=== PATIENT | male | born 1970 | race Caucasian/White ===

== ENCOUNTER 2017-04-27 07:23 | Inpatient (IN) | payer BC ==
[~2017-04-27] VITALS: Ht 195.6 cm; Wt 103.9 kg
[2017-04-27] VITALS (16 sets, daily range): BP systolic 111–152; BP diastolic 60–112
[2017-04-27] MEDS ORDERED: PLAVIX 75 MG TA75 M1 PO (07:29)
[2017-04-27] MEDS ORDERED: LISINOPRIL20 MG PO (07:29)
[2017-04-27] MEDS ORDERED: VITORIN (07:29)
[2017-04-27] MEDS ORDERED: ANDROGEL75 GM TOP (07:32)
[2017-04-27] MEDS ORDERED: TESTOPEL75 MG IL (07:34)
[2017-04-27 07:57] LABS: ABSOLUTE EOSINOPHILS 0.1 thou/uL (0.0-0.7); ABSOLUTE LYMPHOCYTES 1.5 thou/uL (0.8-5.3); ABSOLUTE MONOCYTES 0.6 thou/uL (0.0-1.2); ABSOLUTE NEUTROPHILS 7.1 thou/uL (1.6-8.1); BASOPHILS 0.5 %; EOSINOPHILS 1.3 %; HEMATOCRIT 58.4 % (42.0-52.0); HEMOGLOBIN 19.9 gm/dL (14.0-18.0); LYMPHOCYTES 15.6 %; MCH 32.6 pg (26.0-34.0); MCHC 34.2 g/dL (28.0-37.0); MCV 95.6 fL (80.0-100.0); MONOCYTES 6.6 %; MPV 7.1 fl. (7.2-11.1); NUCLEATED RBCS 0 /100WBC; PLATELET COUNT* 216 thou/uL (150-400); RBC 6.11 mil/uL (4.50-6.00); RDW-CV 13.7 % (10.5-14.5); WBC 9.4 thou/uL (4.0-11.0)
[2017-04-27 08:02] LABS: ANION GAP 7 mmol/L (7-16); BUN 10 mg/dL (7-18); CALCIUM 8.9 mg/dL (8.5-10.1); CHLORIDE 102 mmol/L (98-107); CO2 27 mmol/L (21-32); CREATININE 1.1 mg/dL (0.6-1.3); GLUCOSE 116 mg/dL (70-99); POTASSIUM 4.2 mmol/L (3.5-5.1); SODIUM 136 mmol/L (136-145)
[2017-04-27 08:13] LABS: ALBUMIN 3.8 g/dL (3.4-5.0); ALKALINE PHOSPHATASE 56 U/L (46-116); APTT 30.3 Seconds (25.0-31.3); INR 1.1; NT-PRO BRAIN NAT PEPTIDE 11 pg/mL (<300); PROTIME 10.7 Seconds (9.20-11.50); SGOT 18 U/L (15-37); SGPT 27 U/L (30-65); TOTAL BILIRUBIN 0.8 mg/dL (<0.1-1.0); TOTAL PROTEIN 6.8 g/dL (6.4-8.2); TROPONIN-I LEVEL <0.06 ng/mL (<0.06)
[2017-04-27 13:04] LABS: CHOLESTEROL 258 mg/dL (<200); HDL CHOLESTEROL 39 mg/dL (>40); LDL CHOLESTEROL 182 mg/dL (<100); SERUM ASSESSMENT Clear; TC:HDL 6.6 Ratio (Not establshd); TRIGLYCERIDE 188 mg/dL (<150); VLDL 38 mg/dL (<40)
--- NOTE | 2017-04-27 17:44 | EKG ---
[place] [address] ELECTROCARDIOGRAM REPORT Name: MADISON ESPINOZA JR Room: [address] ADM IN M.R.#: [id number] Admission: 04/27/17 Attend Phys: Naseem [place] Discharge: Date of : 66 Report #: [id number] THIS REPORT FOR: //name// [facility] ED Test Date: 2017-04-27 Test Time: 07:53:59 Pat Name: MADISON ESPINOZA Department: Room: [facility] Gender: M Test Case Developer: Steven KRISHNA : 1970 Requested By: Nicole Stiles Order Number: [id number] MD: Hair Rock Measurements Intervals [place] Rate: 82 P: 2 [place]: 145 QRS: -60 QRSD: 99 T: 29 QT: 362 QTc: 423 Interpretive Statements Sinus rhythm Abnormal inferior Q waves ST elev, probable normal early repol pattern No previous ECG available for comparison Electronically Signed On 04-27-2017 17:44:36 SLUBBER TENDER by Hair Rock [email or web address] <ELECTRONICALLY SIGNED> By: Hair Rock MD, [facility] 04/27/17 1744 0753 0753 Hair Rock MD, FAC /EPI
--- NOTE | 2017-04-27 17:44 | EKG ---
[place] [address] ELECTROCARDIOGRAM REPORT Name: MADISON ESPINOZA JR Room: [address] ADM IN M.R.#: [id number] Admission: 04/27/17 Attend Phys: Naseem [place] Discharge: Date of : 66 Report #: [id number] THIS REPORT FOR: //name// [facility] ED Test Date: 2017-04-27 Test Time: 07:28:57 Pat Name: MADISON ESPINOZA Department: Room: [facility] Gender: M As400 Analyst: [place] : 1970 Requested By: Nicole Stiles Order Number: [id number] MD: Hair Rock Measurements Intervals [place] Rate: 84 P: -23 [place]: 147 QRS: -61 QRSD: 101 T: 29 QT: 357 QTc: 422 Interpretive Statements Sinus rhythm Left axis deviation Abnormal inferior Q waves ST elev, probable normal early repol pattern No previous ECG available for comparison Electronically Signed On 04-27-2017 17:44:29 PAINTER HAND by Hair Rock [email or web address] <ELECTRONICALLY SIGNED> By: Hair Rock MD, [facility] 04/27/17 1744 7 7 Hair Rock MD, [facility] /EPI
--- NOTE | 2017-04-27 19:38 | NUR ---
ADMISSION ASSESSMENT AND HISTORY COMPLETED REFER TO COMPUTER CHARTING. CAPITAL CAMPAIGN FUNDRAISER TRACKING SR. PATIENT RESTING IN BED REPORTING NO PAIN, NAUSEA OR SHORTNESS OF BREATH. BED IN LOW AND LOCKED POSITION. CALL LIGHT WITHIN REACH. IV FLUIDS INFUSING. PATIENT HAD CARDIAC CATH TO RIGHT GROIN THIS AFTERNOON, DRESSING CLEAN, DRY AND INTACT.
[2017-04-28] VITALS (7 sets, daily range): BP systolic 115–144; BP diastolic 59–91
[2017-04-28 05:31] LABS: HEMATOCRIT 48.3 % (42.0-52.0); MCH 33.1 pg (26.0-34.0); MCHC 34.2 g/dL (28.0-37.0); MCV 96.7 fL (80.0-100.0); RBC 4.99 mil/uL (4.50-6.00); RDW-CV 13.6 % (10.5-14.5); WBC 6.8 thou/uL (4.0-11.0)
[2017-04-28 05:32] LABS: HEMOGLOBIN 16.5 gm/dL (14.0-18.0)
[2017-04-28 05:58] LABS: CALCIUM 8.4 mg/dL (8.5-10.1); CREATININE 0.9 mg/dL (0.6-1.3); POTASSIUM 4.4 mmol/L (3.5-5.1); TROPONIN-I LEVEL 0.35 ng/mL (<0.06)
--- NOTE | 2017-04-28 06:33 | NUR ---
Pt pleasant and cooperative, though makes vulgar comments at times. Made several references to wanting bourbon and a cigarette, but deliveryy seems to be in jest. Bing finley, VSS. Will continue to monitor.
--- NOTE | 2017-04-28 13:10 | NUR ---
CM ASSESSMENT: Pt is A&O. Resides at home with his and children. Independent with ADLs, continues to work. Significant ETOH use, states that he has cut back. No DME. No hx of HH or SNF. Planned cardiac cath today. Goal is to return home once medically stable. Following.
--- NOTE | 2017-04-28 13:38 | NUR ---
ASSUMED RESPONSIBILITY OF PT THIS AM PT IS ALERT AND ORIENTED UP AD KOLBY PLAN TO DC TODAY SOME DISCOMFORT IN GROIN SITE BUT PT KNEW IT WAS FROM 'OVER DOING IT' LAST NIGHT PT WITH APPETITE, VERY HUNGRY AT BEDSIDE CALL LIGHT IN REACH NO COMPLAINTS AT THIS TIME JUST 'READY TO LEAVE'
[2017-04-28] MEDS ORDERED: ASPIR 8181 MG PO (13:48)
[2017-04-28] MEDS ORDERED: NITROGLYCERIN0.4 MG SUBLING (13:49)
[2017-04-28] MEDS ORDERED: IMDUR 30 MG TAB30 M1 PO (13:50)
[2017-04-28] MEDS ORDERED: LIPITOR40 MG PO (13:50)
--- NOTE | 2017-04-28 15:49 | NUR ---
PT DISCHARGED HOME WITH WITHOUT CONCERNS TOLD THIS NURSE HE WAS NOT TAKING ANY OF THE NEW MEDICATIONS RECOMMENDED EXPLAINED IMPORTANCE BUT PT DID NOT CARE
--- NOTE | 2017-04-28 17:34 | EKG ---
[place] [address] ELECTROCARDIOGRAM REPORT Name: MADISON ESPINOZA JR Room: [address] DIS IN M.R.#: [id number] Admission: 04/27/17 Attend Phys: Naseem [place] Discharge: 04/28/17 Date of : 66 Report #: [id number] THIS REPORT FOR: //name// [facility] Test Date: 2017-04-27 Test Time: 18:05:11 Pat Name: MADISON ESPINOZA Department: Room: [address] Gender: M Volunteer Manager: [place] : 1970 Requested By: Domenic Tejeda Order Number: [id number] Octavia MD: Hair Rock Measurements Intervals [place] Rate: 64 P: -24 [place]: 154 QRS: -33 QRSD: 104 T: 1 QT: 402 QTc: 415 Interpretive Statements Sinus rhythm Left axis deviation Abnormal inferior Q waves ST elev, probable normal early repol pattern Baseline wander in lead(s) V5 Compared to ECG 04/27/2017 07:53:59 Left-axis deviation now present ST (T wave) deviation still present Electronically Signed On 04-28-2017 17:34:03 PROCESS EXPERT by Hair Rock [email or web address] <ELECTRONICALLY SIGNED> By: Hair Rock MD, FACC 04/28/17 1734 1805 1805 Hair Rock MD, FACC /EPI
--- NOTE | 2017-04-28 17:40 | EKG ---
[place] [address] ELECTROCARDIOGRAM REPORT Name: MADISON ESPINOZA JR Room: [address] DIS IN M.R.#: [id number] Admission: 04/27/17 Attend Phys: Naseem [place] Discharge: 04/28/17 Date of : 66 Report #: [id number] THIS REPORT FOR: //name// [facility] Test Date: 2017-04-28 Test Time: 09:10:03 Pat Name: MADISON ESPINOZA Department: Room: [address] Gender: M Cartography Teacher: : 1970 Requested By: Domenic Tejeda Order Number: [id number] Octavia MD: Hair Rock Measurements Intervals [place] Rate: 66 P: -14 [place]: 151 QRS: 3 QRSD: 105 T: 24 QT: 390 QTc: 415 Interpretive Statements Sinus rhythm ST elev, probable normal early repol pattern Baseline wander in lead(s) I,aVR,aVL,V1,V4 Compared to ECG 04/27/2017 07:53:59 Inferior Q waves no longer present Q waves no longer present ST (T wave) deviation still present Electronically Signed On 04-28-2017 17:40:38 GLASS ENGRAVER by Hair Rock [email or web address] <ELECTRONICALLY SIGNED> By: Hair Rock MD, FACC 04/28/17 1740 0910 0910 Hair Rock MD, FACC /EPI
--- NOTE | 2017-04-30 10:36 | CARD ---
[address] [address] CARDIAC CATH REPORT Name: MADISON ESPINOZA JR Room: [address]#: [id number] Admission: 04/27/17 Attend Phys: Naseem [place] Discharge: 04/28/17 Date of : 66 Report #: [id number] THIS REPORT FOR: //name// APPROVED REPORT Patient Details Patient Status: In-Patient Room #: The patient is a 46 year-old male Event Personnel Domenic Tejeda Behavioral Health Consultant, Laina Alvarado RN RN, Mariela Lugo RTR Scrub, Todd Mcclelland (R) Monitor, Madison Amaya Monitor Procedures Performed Left heart catheterization left ventriculography selective coronary angiography, and percutaneous coronary intervention with deployment of a drug-eluting stent at the site of 90% proximal circumflex stenosis with local thrombus at the site Indication Unstable angina Risk Factors Hypercholesterolemia, Hypertension, Tobacco History () Previous Procedures/Diagnoses Previous PCI, Previous IA Admission/Lab Medications/Medications given during procedure Aspirin, Platelet Aff. Inhib., Angiomax bolus and infusion Procedure Narrative The patient was brought electively to the Cardiac Catheterization Laboratory and was prepped and draped in a sterile manner. The right femoral was infiltrated with 1% Lidocaine subcutaneous anesthesia. A [place] 6 FR sheath was inserted into the right femoral artery. Coronary angiography was performed using coronary diagnostic catheters. The right coronary system was accessed and visualized with a Diagnostic - JR4 catheter. The left coronary system was accessed and visualized with a Diagnostic - JL4 catheter. The left ventricle was accessed and visualized with a Diagnostic - PIGTAIL catheter. Left ventricular/Aortic Valve gradient assessed via catheter pullback. Pre-demployment femoral angiogram was performed . Closure device was deployed with a Fr Angioseal. [place] [address] CARDIAC CATH REPORT Name: MADISON ESPINOZA JR Room: [address]#: [id number] Admission: 04/27/17 Attend Phys: Naseem [place] Discharge: 04/28/17 Date of : 66 Report #: [id number] procedure well and there were no complications associated with the procedure. There was no hematoma. Intraoperative Conscious Sedation Sedation start time: 1539 Case end Time: 1632 Fentanyl 100 mcg Versed 4 mg Fluoro Time: 14.2 minutes Dose: DAP 390709 cGycm2 1929 mGy Contrast Type and Amount: Visipaque 260 ml Coronary Angiography The patient's coronary anatomy is right dominant. Diagnostic Cath Left Main 0% narrowing LAD 40% proximal and 90% mid LAD stenosis Circumflex 95% ostial circumflex narrowing with local thrombus at the site Right Coronary The proximal mid and distal right coronary narrowing with 50% narrowing of the posterior descending branch in its midportion Left Ventriculography The left ventricle is normal in size with contractility. The left ventricular ejection fraction is estimated to be 50%. There is no mitral insufficiency. Hemodynamics The aortic pressure is 95/67 mmHg with a mean of 79 mmHg. The left ventricular pressure is 87/6 mmHg with a mean of mmHg. The left ventricular end diastolic pressure is 9 mmHg. There was no gradient across the aortic valve upon pullback. PCI Technique Lesion Anticoagulation was achieved with Angiomax. Patient was preloaded with Angiomax IV 16 mg per kg. Percutaneous coronary intervention was performed on the proximal circumflex artery segment. The lesion stenosis prior to intervention was 95% with RICK 3 flow. A 6F XB LAD 3.5 Guide Catheter was used to engage the ostium. A IG: ProwaterFlex 180CM Interventional Guidewire was used to cross the lesion. BALLOON DILATION A Balloon catheter Trek RX 2.5 X 12 was inserted and inflated up to 10.00atm for 14seconds. Additional Inflation: 16.00atm [place] 13seconds. [place] [address] CARDIAC CATH REPORT Name: MADISON ESPINOZA JR Room: [address]#: [id number] Admission: 04/27/17 Attend Phys: Naseem [place] Discharge: 04/28/17 Date of : 66 Report #: [id number] Additional Inflation: 14.00atm for 11seconds. 16 MENG FOR 13 SEC STENT DEPLOYMENT A drug-eluting stent Xience Alpine RX 2.5X12 was inserted and inflated up to 10.00atm for 14seconds. Additional Inflation: 12.00atm for 9seconds. Additional Inflation: 15.00atm for 11seconds. 16 MENG FOR 9 SEC Final angiography reveals 10 % stenosis with RICK 3 flow. COMMENTS There was local thrombus at the ostial circumflex site prior to the Intervention; this was no longer evidenced postintervention Conclusion #1 significant coronary artery disease characterized by the following: A 30% proximal and 90% mid LAD narrowing, B 95% ostial circumflex stenosis with local thrombus at the site, with 40% mid circumflex proximal narrowing, C 30% proximal mid and distal right coronary narrowing, this being a dominant vessel with 50% narrowing of the midportion of the posterior descending branch #2 mild reduction in global left ventricular systolic function, estimated ejection fraction being 50%, #3 normal left-sided aortic study, #4 successful percutaneous coronary intervention with deployment of drug-eluting stent at the site of 95% ostial circumflex narrowing with 10% residual narrowing Following stent deployment and RICK-3 flow to the distal vessel no residual thrombus Recommendations Smoking Cessation Cardiac Risk Reduction Program [place] [address] CARDIAC CATH REPORT Name: MADISON ESPINOZA JR Room: [address] IN .R.#: [id number] Admission: 04/27/17 Attend Phys: Naseem [place] Discharge: 04/28/17 Date of : 66 Report #: [id number] Medications Administered Aspirin (any) Clopidogrel <ELECTRONICALLY SIGNED> By: Domenic Tejeda MD, FACC 04/30/171034 34 34Domenic Tejeda MD, FACC /INF
== END 2017-04-28 15:45 | disposition home or self-care (01) | DRG 246 ==
LOC: M.ERS 07:23 → M.2W 09:33 → M.TBA-ER 09:33 → M.2W 12:25
PROVIDERS: Internal Medicine; Personal Emergency Response Attendant; ADMIT Internal Medicine
PROC: B211YZZ Fluoroscopy of Multiple Coronary Arteries using Other Contrast (ICD-10-PCS; principal; 2017-04-27)
PROC: 4A023N7 Measurement of Cardiac Sampling and Pressure, Left Heart, Percutaneous Approach (ICD-10-PCS; principal; 2017-04-27)
PROC: B215YZZ Fluoroscopy of Left Heart using Other Contrast (ICD-10-PCS; principal; 2017-04-27)
PROC: 027034Z Dilation of Coronary Artery, One Artery with Drug-eluting Intraluminal Device, Percutaneous Approach (ICD-10-PCS; principal; 2017-04-27)
DX: I25.110 Atherosclerotic heart disease of native coronary artery with unstable angina pectoris (principal); I21.4 Non-ST elevation (NSTEMI) myocardial infarction; I10 Essential (primary) hypertension; E78.5 Hyperlipidemia, unspecified; F10.10 Alcohol abuse, uncomplicated; F17.210 Nicotine dependence, cigarettes, uncomplicated; I25.2 Old myocardial infarction; Z95.5 Presence of coronary angioplasty implant and graft; Z82.49 Family history of ischemic heart disease and other diseases of the circulatory system; Z71.6 Tobacco abuse counseling

== ENCOUNTER 2017-05-27 09:01 | Observation (INO) | payer BC ==
[~2017-05-27] VITALS: Ht 195.6 cm; Wt 102.1 kg
[~2017-05-27 09:01] MED LIST: ANDROGEL75 GM TOP; ASPIR 8181 MG PO; IMDUR 30 MG TAB30 M1 PO; LIPITOR40 MG PO; LISINOPRIL20 MG PO; NITROGLYCERIN0.4 MG SUBLING; PLAVIX 75 MG TA75 M1 PO; TESTOPEL75 MG IL; VITORIN
[2017-05-27 10:00] LABS: HEMATOCRIT 49.8 % (42.0-52.0); HEMOGLOBIN 17.4 gm/dL (14.0-18.0); MCH 33.1 pg (26.0-34.0); MCHC 34.8 g/dL (28.0-37.0); MPV 7.1 fl. (7.2-11.1); RBC 5.25 mil/uL (4.50-6.00); RDW-CV 13.1 % (10.5-14.5); WBC 7.2 thou/uL (4.0-11.0)
[2017-05-27 10:09] LABS: ANION GAP 8 mmol/L (7-16); BUN 19 mg/dL (7-18); CALCIUM 8.8 mg/dL (8.5-10.1); CHLORIDE 101 mmol/L (98-107); CO2 28 mmol/L (21-32); CREATININE 0.9 mg/dL (0.6-1.3); GLUCOSE 91 mg/dL (70-99); POTASSIUM 4.4 mmol/L (3.5-5.1); SODIUM 137 mmol/L (136-145)
[2017-05-27 10:12] LABS: APTT 31.2 Seconds (25.0-31.3); INR 1.1; PROTIME 10.9 Seconds (9.20-11.50)
[2017-05-27 10:13] LABS: ALBUMIN 3.9 g/dL (3.4-5.0); ALKALINE PHOSPHATASE 46 U/L (46-116); CHOLESTEROL 209 mg/dL (<200); HDL CHOLESTEROL 33 mg/dL (>40); LDL CHOLESTEROL 154 mg/dL (<100); SGOT 20 U/L (15-37); SGPT 31 U/L (30-65); TC:HDL 6.3 Ratio (Not establshd); TOTAL BILIRUBIN 0.6 mg/dL (<0.1-1.0); TOTAL PROTEIN 6.7 g/dL (6.4-8.2); TRIGLYCERIDE 110 mg/dL (<150); VLDL 22 mg/dL (<40)
[2017-05-27 10:14] LABS: SERUM ASSESSMENT Clear
[2017-05-27 10:18] VITALS: BP 120/73
[2017-05-27] MEDS ORDERED: ZOCOR20 MG (11:16)
[2017-05-27] MEDS ORDERED: DEPO-TESTO200 MG/1 M IM (11:18)
[2017-05-27 16:30] VITALS: BP 120/73
--- NOTE | 2017-05-27 17:18 | EKG ---
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: : 1970 Requested By: Domenic Tejeda Order Number: [id number] Octavia MD: Hair Rock Measurements Intervals [place] Rate: 73 P: -31 [place]: 145 QRS: -13 QRSD: 104 T: 30 QT: 384 QTc: 424 Interpretive Statements Sinus rhythm Diffuse ST elevation, consider pericarditis Lateral leads are also involved Compared to ECG 04/28/2017 09:10:03 ST (T wave) deviation still present Electronically Signed On 05-27-2017 17:18:04 MAIL DELIVERER by Hair Rock [email or web address] <ELECTRONICALLY SIGNED> By: Hair Rock MD, FAC 05/27/17 1718 1000 1000 Hair Rock MD, [facility] /EPI
--- NOTE | 2017-05-27 17:20 | EKG ---
[place] [address] ELECTROCARDIOGRAM REPORT Name: MADISON ESPINOZA JR Room: [address] ADM IN M.R.#: [id number] Admission: 05/27/17 Attend Phys: Domenic Tejeda MD, Discharge: Date of : 66 Report #: [id number] THIS REPORT FOR: //name// [facility] Test Date: 2017-05-27 Test Time: 16:36:31 Pat Name: MADISON ESPINOZA Department: Room: [facility] Gender: M Vp Transportation: [facility] : 1970 Requested By: Domenic Tejeda Order Number: [id number] Reading MD: Hair Rock Measurements Intervals [place] Rate: 69 P: -5 [place]: 160 QRS: -23 QRSD: 103 T: 15 QT: 386 QTc: 414 Interpretive Statements Sinus rhythm Borderline left axis deviation Abnormal inferior Q waves Diffuse ST elevation consider pericarditis Compared to ECG 04/28/2017 09:10:03 Inferior Q waves now present Q waves now present ST (T wave) deviation still present Electronically Signed On 05-27-2017 17:20:15 JAVA J2EE APPLICATION DEVELOPER by Hair Rock [email or web address] <ELECTRONICALLY SIGNED> By: Hair Rock MD, FACC 05/27/17 1720 1636 1636 Hair Rock MD, FAC /EPI
[2017-05-27 17:39] VITALS: BP 120/73
[2017-05-27 17:47] VITALS: BP 120/73
[2017-05-27 19:55] VITALS: BP 140/87
[2017-05-28] VITALS: BP 140/85
[2017-05-28 04:00] VITALS: BP 136/80
[2017-05-28 05:17] LABS: HEMATOCRIT 47.7 % (42.0-52.0); HEMOGLOBIN 16.5 gm/dL (14.0-18.0); MCH 32.7 pg (26.0-34.0); MCHC 34.6 g/dL (28.0-37.0); MCV 94.6 fL (80.0-100.0); MPV 7.3 fl. (7.2-11.1); RBC 5.04 mil/uL (4.50-6.00); RDW-CV 13.1 % (10.5-14.5); WBC 6.6 thou/uL (4.0-11.0)
[2017-05-28 05:28] LABS: ANION GAP 6 mmol/L (7-16); BUN 14 mg/dL (7-18); CALCIUM 8.4 mg/dL (8.5-10.1); CHLORIDE 104 mmol/L (98-107); CO2 27 mmol/L (21-32); CREATININE 0.9 mg/dL (0.6-1.3); GLUCOSE 79 mg/dL (70-99); POTASSIUM 3.8 mmol/L (3.5-5.1); SODIUM 137 mmol/L (136-145); TROPONIN-I LEVEL <0.06 ng/mL (<0.06)
[2017-05-28 07:00] VITALS: BP 130/77
[2017-05-28 09:57] VITALS: BP 136/77
--- NOTE | 2017-05-28 10:21 | CARD ---
[address] [address] CARDIAC CATH REPORT Name: MADISON ESPINOZA JR Room: [address] IN ..#: [id number] Admission: 05/27/17 Attend Phys: Domenic Tejeda MD, Discharge: Date of : 66 Report #: [id number] THIS REPORT FOR: //name// APPROVED REPORT Patient Details Patient Status: Out-Patient Room #: The patient is a 46 year-old male Event Personnel Dr. Tejeda Procedures Performed Left heart catheterization, selective coronary artery, and percutaneous coronary intervention to the mid and distal LAD with drug-eluting stents deployed at both sites Indication Unstable angina Risk Factors Family History, Hypercholesterolemia, Hypertension, Tobacco History () Admission/Lab Medications/Medications given during procedure Angiomax bolus and infusion Procedure Narrative The patient was brought electively to the Cardiac Catheterization Laboratory and was prepped and draped in a sterile manner. The right femoral was infiltrated with 1% Lidocaine subcutaneous anesthesia. A 6 [place] sheath was inserted into the right femoral artery. Coronary angiography was performed using coronary diagnostic catheters. The right coronary system was accessed and visualized with a Diagnostic catheter. The left coronary system was accessed and visualized with a Diagnostic catheter. The left ventricle was accessed and visualized with a Diagnostic catheter. Left ventricular/Aortic Valve gradient assessed via catheter pullback. Pre-demployment femoral angiogram was performed . Closure device was deployed with a 6 Fr Angioseal. There was no hematoma. Diagnostic Cath Left Main 0% narrowing LAD 80% mid LAD stenosis with 80% distal LAD narrowing and 60% narrowing of the proximal portion of the first diagonal [address] [address] CARDIAC CATH REPORT Name: MADISON ESPINOZA JR Room: [address] IN ..#: [id number] Admission: 05/27/17 Attend Phys: Domenic Tejeda MD, Discharge: Date of : 66 Report #: [id number] branch Circumflex Widely patent proximal circumflex stent with 30% mid vessel narrowing Right Coronary Dominant vessel with 30% proximal and mid vessel narrowing with widely patent stents and 60% narrowing of the midportion of the posterior descending branch Left Ventriculography Left Ventriculography was not performed. Hemodynamics The aortic pressure is 100/70 mmHg with a mean of 82 mmHg. The left ventricular pressure is 100/7 end-diastolic mmHg with a mean of mmHg. The left ventricular end diastolic pressure is 7 mmHg. There was no gradient across the aortic valve upon pullback. PCI Technique Lesion Anticoagulation was achieved with Angiomax. Percutaneous coronary intervention was performed on the distal LAD. The lesion stenosis prior to intervention was 80% with RICK 3 flow. A 6 [place] XB LAD 3.5 Guide Catheter was used to engage the left ostium. A 014 Work4 flex Interventional Guidewire was used to cross the lesion. BALLOON DILATION A Balloon catheter 2.0 x 12 mm trek was inserted and inflated up to 10atm for 15seconds. STENT DEPLOYMENT A drug-eluting stent 2.25 x 8 mm xience Alpine x 4 was inserted and inflated up to 5-6atm for 15seconds. Final angiography reveals 0 % stenosis with RICK 3 flow. PCI Technique Lesion 2 Percutaneous Coronary Intervention was performed on the mid LAD. The lesion stenosis prior to intervention was 80% with RICK 3 flow. Balloon Dilation A Balloon catheter 2.0 x 12 mm trek was inserted and inflated up to 16atm for 15seconds. Stent Deployment A drug-eluting stent 2.5 x 12 of xience Alpine was inserted and inflated up to 12atm [place] 15[place] [address] CARDIAC CATH REPORT Name: MADISON ESPINOZA JR Room: [address]#: [id number] Admission: 05/27/17 Attend Phys: Domenic Tejeda MD, Discharge: Date of : 66 Report #: [id number] Final angiography reveals 10 % stenosis with RICK 3 flow. PCI Technique Lesion 3 Percutaneous Coronary Intervention was performed on the proximal first diagonal. The lesion stenosis prior to intervention was 70% with RICK 3 flow. Balloon Dilation A Balloon catheter 2.25 by 8mm trek was inserted and inflated up to 14atm for 20seconds. Final angiography reveals 20 % stenosis with RICK 3 flow. Conclusion #1 significant coronary artery disease characterized by the following: A 80% mid and distal LAD stenosis with 70% narrowing of the ostium of the first diagonal branch, B widely patent proximal circumflex stent with 30% mid vessel narrowing, C dominant right coronary artery with 30% proximal and mid vessel narrowing with widely patent stents and 60% stenosis of the midportion of the posterior descending branch, #2 normal left-sided hemodynamics study, #3 successful percutaneous coronary intervention with deployment of sequential drug-eluting stents at the site of 80% distal LAD stenosis and 1 drug-eluting stent at site of 80% mid LAD stenosis with 10 and 0% residual narrowing following stent deployment #4 successful percutaneous transluminal coronary angioplasty of the site of 70% ostial first diagonal narrowing with 20% residual narrowing and RICK-3 flow the distal vessel. Recommendations Smoking Cessation Daily ASA with Plavix for at least one year Cardiac Risk Reduction [place] [address] CARDIAC CATH REPORT Name: MADISON ESPINOZA JR Room: [address]#: [id number] Admission: 05/27/17 Attend Phys: Domenic Tejeda MD, Discharge: Date of : 66 Report #: [id number] Aspirin (any) Clopidogrel <ELECTRONICALLY SIGNED> By: Domenic Tejeda MD, [facility] 05/28/17 1021 1021 1021Joreno Tejeda MD, FACC /INF
--- NOTE | 2017-05-28 10:50 | D ---
[address] [address] DISCHARGE SUMMARY Name: MADISON ESPINOZA JR Room: [address] IN M.R.#: [id number] Admission: 05/27/17 Attend Phys: Domenic Tejeda MD, Discharge: Date of : 66 Report #: [id number] THIS REPORT FOR: //name// CC: Julito Tejeda DATE OF SERVICE: 05/28/2017 FINAL DISCHARGE DIAGNOSES: 1. Coronary artery disease with unstable angina. 2. Status post prior stenting of the proximal circumflex and stenting of the mid and distal left anterior descending on 05/27/2017. 3. Hyperlipoproteinemia. 4. Hypertension. 5. Tobacco abuse. PROCEDURES: 05/27/2016-left heart catheterization, selective coronary arteriography, and percutaneous coronary intervention with deployment of sequential drug-eluting stents in the distal right coronary artery and a single drug-eluting stent in the distal LAD and a single right stent in the mid LAD. The patient is a 46-year-old male with aggressive premature coronary artery disease, status post multiple prior interventions. He presented several weeks ago with an acute coronary syndrome and underwent stenting of the ostium of the circumflex, which is subtotally occluded with intraluminal thrombus. He demonstrated significant mid and distal LAD lesions, which were not approached in the acute setting. Since then, he has noted occasional chest discomfort without any discomfort associated with his prior acute coronary syndrome. He had been compliant with dual antiplatelet therapy, but not stop statin. He had decreased cigarette smoking to one-half pack of cigarettes per day. I performed recatheterization on 05/27/2017, which revealed widely patent proximal circumflex stent with significant mid and distal LAD stenosis. I placed 4 short drug-eluting stents in the distal LAD to cover the area with good proximal and distal coverage. He had 0% residual narrowing distally. I placed one 2.5 x 12 mm Xience Alpine drug-eluting stent in the mid LAD with a 10% residual narrowing. The patient did well post-procedurally with no hematoma and no bruising at the femoral site of catheterization. Laboratory data on 05/28/2017, revealed a sodium 137, potassium 3.8, BUN 14, creatinine 0.9. Hemoglobin 16.5, white blood cell count 6600 with 163,000 platelets. Cholesterol 209, LDL 154, HDL 33, triglycerides 110 mg percent. He ambulated in the hallways without difficulty. The patient was discharged to home on 05/28/2017, on the following medications: Aspirin 81 mg daily, clopidogrel 75 mg daily with a 600 [place] [address] DISCHARGE SUMMARY Name: MADISON ESPINOZA JR Room: [address] IN ..#: [id number] Admission: 05/27/17 Attend Phys: Domenic Tejeda MD, Discharge: Date of : 66 Report #: [id number] periprocedurally, isosorbide mononitrate 30 mg daily, lisinopril 40 mg daily, simvastatin 20 mg daily and previously used a testosterone injections on a monthly basis. The patient is scheduled to return to see me in clinic on 07/06/2017, at 0900. He is to return to work on 06/02/2017, as discussed with the patient. <ELECTRONICALLY SIGNED> By: Domenic Tejeda MD, [facility] 05/28/17 1050 0930 1027Joreno Tejeda MD, [facility] /nt
[2017-05-28] MEDS ORDERED: LIPITOR40 MG PO (11:16)
--- NOTE | 2017-05-28 20:17 | EKG ---
[place] [address] ELECTROCARDIOGRAM REPORT Name: MADISON ESPINOZA JR Room: [address]#: [id number] Admission: 05/27/17 Attend Phys: Domenic Tejeda MD, Discharge: 05/28/17 Date of : 66 Report #: [id number] THIS REPORT FOR: //name// [facility] Test Date: 2017-05-28 Test Time: 08:18:17 Pat Name: MADISON ESPINOZA Department: Room: 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1970 Requested By: Domenic Tejeda Order Number: [id number] Octavia MD: Hair Rock Measurements Intervals [place] Rate: 51 P: -35 [place]: 154 QRS: -10 QRSD: 109 T: 23 QT: 416 QTc: 384 Interpretive Statements Sinus arrhythmia ST elev, probable normal early repol pattern Compared to ECG 05/27/2017 16:36:31 Inferior Q waves no longer present Q waves no longer present ST (T wave) deviation still present Electronically Signed On 05-28-2017 20:17:53 BETTING CLERK by Hair Rock [email or web address] <ELECTRONICALLY SIGNED> By: Hair Rock MD, FACC 05/28/172016 7 7 Hair Rock MD, FAC /EPI
== END 2017-05-28 12:00 | disposition home or self-care (01) ==
LOC: M.CL 09:01 → M.2W 15:35 → M.TBA-CV 15:35 → M.2W 15:35
PROVIDERS: ADMIT Internal Medicine
DX: I25.110 Atherosclerotic heart disease of native coronary artery with unstable angina pectoris (principal); I10 Essential (primary) hypertension; E78.5 Hyperlipidemia, unspecified; F17.200 Nicotine dependence, unspecified, uncomplicated; E29.1 Testicular hypofunction; F10.10 Alcohol abuse, uncomplicated; Z95.5 Presence of coronary angioplasty implant and graft; Z82.49 Family history of ischemic heart disease and other diseases of the circulatory system

== ENCOUNTER 2017-06-03 07:02 | Observation (INO) | payer BC ==
[2017-06-03] VITALS (7 sets, daily range): BP systolic 112–142; BP diastolic 66–93
[~2017-06-03] VITALS: Ht 195.6 cm; Wt 94.8 kg
[~2017-06-03 07:02] MED LIST changes: +DEPO-TESTO200 MG/1 M IM; +ZOCOR20 MG
[2017-06-03 07:18] LABS: ABSOLUTE BASOPHILS 0.1 thou/uL (0.0-0.2); ABSOLUTE EOSINOPHILS 0.1 thou/uL (0.0-0.7); ABSOLUTE LYMPHOCYTES 1.2 thou/uL (0.8-5.3); ABSOLUTE MONOCYTES 0.5 thou/uL (0.0-1.2); ABSOLUTE NEUTROPHILS 4.4 thou/uL (1.6-8.1); BASOPHILS 1.1 %; EOSINOPHILS 2.3 %; HEMATOCRIT 51.7 % (42.0-52.0); LYMPHOCYTES 19.4 %; MCHC 34.8 g/dL (28.0-37.0); MCV 94.8 fL (80.0-100.0); MONOCYTES 7.5 %; NUCLEATED RBCS 0 /100WBC; PLATELET COUNT* 177 thou/uL (150-400); POLYS 69.7 %; RBC 5.46 mil/uL (4.50-6.00); RDW-CV 13.2 % (10.5-14.5); WBC 6.4 thou/uL (4.0-11.0)
[2017-06-03 07:27] LABS: ANION GAP 8 mmol/L (7-16); BUN 16 mg/dL (7-18); CHLORIDE 100 mmol/L (98-107); CO2 27 mmol/L (21-32); CREATININE 1.1 mg/dL (0.6-1.3); GLUCOSE 101 mg/dL (70-99); POTASSIUM 4.1 mmol/L (3.5-5.1); SODIUM 135 mmol/L (136-145)
[2017-06-03 07:38] LABS: ALBUMIN 4.1 g/dL (3.4-5.0); ALKALINE PHOSPHATASE 57 U/L (46-116); LIPASE 90 U/L (73-393); NT-PRO BRAIN NAT PEPTIDE 10 pg/mL (<300); SGOT 16 U/L (15-37); SGPT 27 U/L (30-65); TOTAL BILIRUBIN 0.5 mg/dL (<0.1-1.0); TOTAL PROTEIN 7.1 g/dL (6.4-8.2); TROPONIN-I LEVEL <0.06 ng/mL (<0.06)
--- NOTE | 2017-06-03 08:13 | NUR ---
GUNNER RENDON PHONE NUMBER [phone]
[2017-06-03] MEDS ORDERED: CRESTOR20 MG PO (11:54)
[2017-06-03] MEDS ORDERED: FENOFIBRATE160 MG PO (11:55)
--- NOTE | 2017-06-03 13:01 | EKG ---
[place] [address] ELECTROCARDIOGRAM REPORT Name: MADISON ESPINOZA JR Room: [address] ADM IN M.R.#: [id number] Admission: 06/03/17 Attend Phys: Naseem Herman Discharge: Date of : 66 Report #: [id number] THIS REPORT FOR: //name// [facility] ED Test Date: 2017-06-03 Test Time: 07:07:33 Pat Name: MADISON ESPINOZA Department: Room: [facility] Gender: M Data Migration Lead: STUDENT : 1970 Requested By: Ryan Centeno Order Number: [id number] MD: Gallo Hood Measurements Intervals [place] Rate: 77 P: -22 NE: 147 QRS: -11 QRSD: 101 T: 33 QT: 349 QTc: 395 Interpretive Statements Sinus rhythm Compared to ECG 05/28/2017 08:18:17 rate increased Electronically Signed On 06-03-2017 13:00:59 REHABILITATION THERAPY TECHNICIAN by Gallo Hood [email or web address] <ELECTRONICALLY SIGNED> By: Gallo Hood MD, [facility] 06/03/17 1300 0707 6 Gallo Hood MD, FACC /EPI
--- NOTE | 2017-06-03 13:02 | EKG ---
[place] [address] ELECTROCARDIOGRAM REPORT Name: MADISON ESPINOZA JR Room: [address] ADM IN .R.#: [id number] Admission: 06/03/17 Attend Phys: Naseem Herman Discharge: Date of : 66 Report #: [id number] THIS REPORT FOR: //name// [facility] ED Test Date: 2017-06-03 Test Time: 07:39:25 Pat Name: MADISON ESPINOZA Department: Room: [facility] Gender: Corporate Health Consultant: Steven KRISHNA : 1970 Requested By: Ryan Centeno Order Number: [id number] MD: Gallo Hood Measurements Intervals [place] Rate: 72 P: -29 [place]: 147 QRS: -24 QRSD: 102 T: 31 QT: 370 QTc: 405 Interpretive Statements Sinus rhythm Borderline left axis deviation ST elevation, consider early repolarization Electronically Signed On 06-03-2017 13:02:15 LOCAL TRUCK DRIVER by Gallo Hood [email or web address] <ELECTRONICALLY SIGNED> By: Gallo Hood MD, [facility] 06/03/17 1302 0739 8 Gallo Hood MD, FACC /EPI
--- NOTE | 2017-06-03 16:07 | EKG ---
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 : 1970 Requested By: Ryan Centeno Order Number: [id number] MD: Hair Rock Measurements Intervals [place] Rate: 67 P: -14 [place]: 142 QRS: -33 QRSD: 108 T: 17 QT: 391 QTc: 413 Interpretive Statements Sinus rhythm Probable inferior infarct, old ST elevation, Early repolarization Compared to ECG 06/03/2017 07:39:25 ST (T wave) deviation still present Electronically Signed On 06-03-2017 16:07:46 PEDIATRIC DERMATOLOGIST by Hair Rock [email or web address] <ELECTRONICALLY SIGNED> By: Hair Rock MD, [facility] 06/03/17 1607 0853 0853 Hair Rock MD, [facility] /EPI
--- NOTE | 2017-06-03 18:46 | NUR ---
PT ADMITTED TO UNIT AROUND 1100 PT IS ALERT AND ORIENTED X 4 PT IS UP AD KOLBY PT IS NOT A FALL RISK, PT WAS NPO PER CARDIOLOGY, CARDIOLOGY SAW PT WILL NOT TREAT CARDIOLOGY GAVE SCRIPTS AND SAMPLES AND SIGNED OFF THIS NURSE TALKED WITH DUNBAR WHO ORDERED IMETREX LYRICA AND MUSCLE RUB WANTED PT TO TAKE THOSE AND CALL DR MOJICA IN SEVERAL HOURS PT ABLE TO EAT ON HEART HEALTHY DIET PT DID NOT WANT TO EAT WHAT HOSPITAL SERVED AND HAD BRING FISH FROM HOME, GAVE PT MEDICATIONS DR ANTOINETTE GIVEN REASSESSED PT STATES HIS HEAD AND NECK STILL HURTS PAIN HAS DOUBLED AND PT IS WORSE THAN WHEN HE CAME IN THIS NURSE PAGED DR MOJICA WHO ORDERED METHACARBOMOL AND PERCOCET THIS NURSE GAVE BOTH, PT IS SR ON THE MONITOR, WILL CONTINUE TO MONITOR
--- NOTE | 2017-06-03 22:41 | NUR ---
RECIEVED REPORT AND ASSUMED CARE OF PATIENT AT 1930. WARDROBE STYLIST IN PLACE TRACING SB. ASSESSMENT AND VITALS COMPLETED CHARTED, VSS. PATIENT ON ROOM AIR WITH O2 SATS 94%. PATIENT STATES THAT HIS PAIN HAS IMPROVED BUT IS STILL PRESENT, RATED 6/10. PRN MEDICATION ADMINISTERED. PATIENT DENIES FURTHER NEEDS AT THIS TIME. CALL LIGHT WITHIN REACH.
[2017-06-04 04:24] VITALS: BP 104/60
--- NOTE | 2017-06-04 05:34 | NUR ---
PATIENT PARTIALLY PROGRESSING TOWARDS GOALS: PAIN PARTIALLY CONTROLLED WITH SCHEDULED AND PRN MEDICATION, ALTHOUGH PATIENT NEVER REPORTED THAT PAIN WAS COMPLETELY RELIEVED. PATIENT WOULD STILL "LIKE TO KNOW WHAT IS CAUSING HIS NECK SPASMS AND HEADACHE." ENCOURAGED PATIENT TO WRITE DOWN QUESTIONS FOR THE ROUNDING PHYSICIAN IN THE AM. HOURLY ROUNDING OBSERVED. CALL LIGHT WITHIN REACH
[2017-06-04 07:30] VITALS: BP 122/88
--- NOTE | 2017-06-04 07:36 | CON ---
[address] [address] CONSULTATION Name: MADISON ESPINOZA JR Room: [address] IN M.R.#: [id number] Admission: 06/03/17 Attend Phys: Naseem Herman Discharge: Date of : 66 Report #: [id number] THIS REPORT FOR: //name// CC: Julito Tejeda MD FAC Karthik Campo MD FAC Javier Torres INDICATION: Neck and chest pain. HISTORY OF PRESENT ILLNESS: The patient is a 46-year-old gentleman with 3-vessel coronary artery disease status post multiple interventions in the past. He has preserved left ventricular systolic function. He was admitted to the hospital with some acute pain in the right neck and occipital area, described as a sharp discomfort and spasm. This has been intermittent for the past month or so. Starting this week, this discomfort became more frequent and intense. This morning, he had ongoing spasm and discomfort in this area, ultimately leading to some left anterior chest pain. He does have rather significant 3-vessel coronary artery disease with multiple interventions as outlined above. His initial troponin was unremarkable. An EKG on admission showed sinus rhythm with inferior Q-waves, but no acute ST or T-wave abnormalities. At the time of my interview, he was not having chest pain. He did have an episode of discomfort in his right neck and occipital area that resolved fairly quickly. He is without other cardiac complaint. He denies palpitations. He is not having orthopnea or paroxysmal nocturnal dyspnea. PAST MEDICAL HISTORY: 1. Coronary artery disease. 2. Hypertension. 3. Hyperlipidemia. 4. Tobacco use. 5. Acute inferior wall MT in 2006. PAST SURGICAL HISTORY: 1. Multiple percutaneous coronary interventions. 2. Tonsillectomy. FAMILY HISTORY: Sister has heart disease. SOCIAL HISTORY: The patient smokes half a pack of cigarettes daily now. He smoked up to 2 packs daily before. [place] [address] CONSULTATION Name: MADISON ESPINOZA JR Room: [address]#: [id number] Admission: 06/03/17 Attend Phys: Naseem Herman Discharge: Date of : 66 Report #: [id number] ALLERGIES: None documented. CURRENT MEDICATIONS: Simvastatin 20 mg daily, fenofibrate 134 mg daily, aspirin 81 mg daily, Plavix 75 mg daily, lisinopril 40 mg daily, Nitrostat p.r.n., testosterone shots twice monthly. REVIEW OF SYSTEMS: He reports some chest discomfort as outlined above. He wears glasses without acute visual changes. He has upper dentures. Otherwise, 14-point review of systems was unremarkable. PHYSICAL EXAMINATION: VITAL SIGNS: Blood pressure 112/71, pulse 61 and regular. GENERAL: This is a pleasant gentleman who does not appear to be in distress. Mood and affect appropriate. HEENT: Extraocular muscles intact. Mucous membranes are moist. NECK: Shows no jugular venous distention. There are no carotid bruits. CHEST: Reveals clear lung kc with diminished breath sounds without wheezes or rales. CARDIOVASCULAR: Reveals a regular rhythm, normal S1 and S2. I do not appreciate gallop or murmur. ABDOMEN: Reveals normal bowel sounds. The abdomen is soft, nontender. EXTREMITIES: Shows no edema. Peripheral pulses palpable. SKIN: Warm and dry. LABORATORY DATA: A 12-lead EKG shows sinus rhythm without acute ST or T-wave abnormality. There are subtle Q-waves in the inferior leads. Chest x-ray shows no acute cardiopulmonary abnormality. Labs are reviewed. Troponin is less than 0.06 on 2 separate occasions. IMPRESSION AND RECOMMENDATIONS: 1. Neck discomfort as outlined above. I suspect this is muscle spasm and inflammation. I would treat with nonsteroidal anti-inflammatory and muscle relaxants. 2. Chest discomfort could certainly represent some mild angina, especially considering the patient's underlying coronary artery disease. I do not believe this represents acute coronary syndrome. I would add Ranexa 500 mg twice daily and have him follow up with us in a month to see if this is effective. Continue other medications as outlined above. 3. Hyperlipidemia. Continue simvastatin and fenofibrate at current doses. Recommend repeat fasting lipid profile in the next 3-6 months. Continue daily aspirin. 4. Tobacco use. Discussed smoking cessation. The patient continues to try to cut down on cigarette smoking. I [place] [address] CONSULTATION Name: MADISON ESPINOZA JR Room: [address]#: [id number] Admission: 06/03/17 Attend Phys: Naseem Herman Discharge: Date of : 66 Report #: [id number] The patient is stable for discharge from cardiac standpoint. <ELECTRONICALLY SIGNED> By: Hair Rock MD, FACC 06/04/17 0736 1427 1850Micbeba Rock MD, FACKendall /nt
--- NOTE | 2017-06-04 10:39 | NUR ---
RECEIVED PT CARE 0700. PT IS ALERT AND ORIENTED X4. VSS. POLICE INSPECTOR TRACING SR. PT DENIES ANY SOA. O2 SAT 98% ON ROOM AIR. AM ASSESSMENT CHARTED. MEDS PER MAR. PATIENT ANTICIPATING DC TO HOME TODAY. WAITING FOR DR MOJICA TO ROUND. CALL LIGHT WITHIN REACH. WILL CONTINUE TO MONITOR.
[2017-06-04] MEDS ORDERED: IBUPROFEN 800800 M1 PO (11:56)
[2017-06-04] MEDS ORDERED: ROBAXIN 750 MG750 M1 PO (11:58)
[2017-06-04] MEDS ORDERED: LYRICA 50 MG50 MG PO (12:00)
[2017-06-04] MEDS ORDERED: HYDROCODONE-AP1 EAC6 PO (12:00)
[2017-06-04 12:12] VITALS: BP 131/85
--- NOTE | 2017-06-04 13:11 | NUR ---
RECEIVED DISCHARGE ORDERS PER DR MOJICA. IV DISCONTINUED. CONFERENCE COORDINATOR REMOVED AND RETURNED TO NURSE'S DESK. EDUCATED PATIENT ON F/U APPT WITH CARDIOLOGY AND HIS PRIMARY. NEW SCRIPTS GIVEN WITH MED INFORMATION SHEETS. PATIENT DRESSED, ALL BELONGINGS PACKED AND LEAVING WITH PATIENT. PATIENT DENIES ANY QUESTIONS OR CONCERNS AT DISCHARGE. HE IS LEAVING VIA AMBULATORY PER PATIENTS REQUEST ACCOMPANIED BY NURSING STAFF, HIS SPOUSE, AND HIS SON.
== END 2017-06-04 13:13 | disposition home or self-care (01) ==
LOC: M.ERS 07:02 → M.2W 09:12 → M.TBA-ER 09:12 → M.2W 11:13
PROVIDERS: Emergency Medicine Emergency Medical Services; ADMIT Internal Medicine
DX: I25.118 Atherosclerotic heart disease of native coronary artery with other forms of angina pectoris (principal); M79.2 Neuralgia and neuritis, unspecified; E78.5 Hyperlipidemia, unspecified; I10 Essential (primary) hypertension; I25.2 Old myocardial infarction; Z95.5 Presence of coronary angioplasty implant and graft; F17.210 Nicotine dependence, cigarettes, uncomplicated

== ENCOUNTER → 2017-09-03 | Outpatient (CLI) | payer BC ==
[~2017-09-03] MED LIST changes: +CLEOCIN HCL150 MG PO; +CRESTOR20 MG PO; +FENOFIBRATE160 MG PO; +HYDROCODONE-AP1 EAC6 PO; +IBUPROFEN 800800 M1 PO; +LYRICA 50 MG50 MG PO; +NORCO 7.5-3251 EACH PO; +ROBAXIN 750 MG750 M1 PO; +ZETIA10 MG PO; +ZOCOR20 MG PO
[2017-09-03 06:59] LABS: ALBUMIN 3.9 g/dL (3.4-5.0); ALKALINE PHOSPHATASE 69 U/L (46-116); CHOLESTEROL 211 mg/dL (<200); DIRECT BILIRUBIN 0.1 mg/dL (<0.1-0.3); HDL CHOLESTEROL 38 mg/dL (>40); LDL CHOLESTEROL 154 mg/dL (<100); SGOT 20 U/L (15-37); SGPT 31 U/L (30-65); TC:HDL 5.6 Ratio (Not establshd); TOTAL BILIRUBIN 0.5 mg/dL (<0.1-1.0); TOTAL PROTEIN 6.9 g/dL (6.4-8.2); TRIGLYCERIDE 98 mg/dL (<150); VLDL 20 mg/dL (<40)
[2017-09-03 07:06] LABS: SERUM ASSESSMENT Clear
== END ==
LOC: M.LAB 06:24
PROVIDERS: Internal Medicine
DX: E78.00 Pure hypercholesterolemia, unspecified (principal)

== ENCOUNTER → 2017-10-18 | Outpatient (CLI) | payer BC ==
[2017-10-18 07:20] LABS: ALBUMIN 3.8 g/dL (3.4-5.0); ALKALINE PHOSPHATASE 56 U/L (46-116); CHOLESTEROL 207 mg/dL (<200); DIRECT BILIRUBIN 0.2 mg/dL (<0.1-0.3); HDL CHOLESTEROL 50 mg/dL (>40); LDL CHOLESTEROL 147 mg/dL (<100); SERUM ASSESSMENT Clear; SGOT 17 U/L (15-37); SGPT 31 U/L (30-65); TC:HDL 4.1 Ratio (Not establshd); TOTAL BILIRUBIN 0.7 mg/dL (<0.1-1.0); TOTAL PROTEIN 6.9 g/dL (6.4-8.2); TRIGLYCERIDE 53 mg/dL (<150); VLDL 11 mg/dL (<40)
[2017-10-19 04:08] LABS: TESTOSTERONE 685 ng/dL (264-916)
== END ==
LOC: M.LAB 06:51
PROVIDERS: Internal Medicine Cardiovascular Disease
DX: E78.00 Pure hypercholesterolemia, unspecified (principal); E34.9 Endocrine disorder, unspecified

== ENCOUNTER 2017-11-30 06:38 | Inpatient (IN) | payer BC ==
[2017-11-30] VITALS (15 sets, daily range): BP systolic 108–159; BP diastolic 52–95
[~2017-11-30] VITALS: Ht 195.6 cm; Wt 97.1 kg
[~2017-11-30 06:38] MED LIST changes: -CLEOCIN HCL150 MG PO; -NORCO 7.5-3251 EACH PO; -ZETIA10 MG PO; -ZOCOR20 MG PO
[2017-11-30] MEDS ORDERED: ZETIA10 MG PO (07:02)
[2017-11-30] MEDS ORDERED: ZOCOR20 MG PO (07:02)
[2017-11-30 07:15] LABS: ABSOLUTE EOSINOPHILS 0.2 thou/uL (0.0-0.7); ABSOLUTE LYMPHOCYTES 1.3 thou/uL (0.8-5.3); ABSOLUTE MONOCYTES 0.5 thou/uL (0.0-1.2); ABSOLUTE NEUTROPHILS 5.5 thou/uL (1.6-8.1); BASOPHILS 0.6 %; EOSINOPHILS 2.7 %; HEMATOCRIT 51.8 % (42.0-52.0); HEMOGLOBIN 17.6 gm/dL (14.0-18.0); LYMPHOCYTES 17.7 %; MCH 33.6 pg (26.0-34.0); MCHC 33.9 g/dL (28.0-37.0); MONOCYTES 6.7 %; MPV 6.9 fl. (7.2-11.1); NUCLEATED RBCS 0 /100WBC; PLATELET COUNT* 221 thou/uL (150-400); POLYS 72.3 %; RBC 5.23 mil/uL (4.50-6.00); RDW-CV 14.7 % (10.5-14.5); WBC 7.6 thou/uL (4.0-11.0)
[2017-11-30 07:16] LABS: ANION GAP 6 mmol/L (7-16); BUN 10 mg/dL (7-18); CALCIUM 8.6 mg/dL (8.5-10.1); CHLORIDE 103 mmol/L (98-107); CO2 32 mmol/L (21-32); GLUCOSE 106 mg/dL (70-99); POTASSIUM 4.3 mmol/L (3.5-5.1); SODIUM 141 mmol/L (136-145)
[2017-11-30 07:19] LABS: INR 1.2; PROTIME 11.5 Seconds (9.20-11.50)
[2017-11-30 07:27] LABS: ALBUMIN 3.9 g/dL (3.4-5.0); ALKALINE PHOSPHATASE 57 U/L (46-116); LIPASE 85 U/L (73-393); NT-PRO BRAIN NAT PEPTIDE 20 pg/mL (<300); SGOT 19 U/L (15-37); SGPT 35 U/L (30-65); TOTAL BILIRUBIN 0.5 mg/dL (<0.1-1.0); TOTAL PROTEIN 7.1 g/dL (6.4-8.2); TROPONIN-I LEVEL <0.06 ng/mL (<0.06)
--- NOTE | 2017-11-30 09:40 | EKG ---
[place] [address] ELECTROCARDIOGRAM REPORT Name: MADISON ESPINOZA JR Room: [address] ADM IN M.R.#: [id number] Admission: 11/30/17 Attend Phys: Madison Garner MD Discharge: Date of : 66 Report #: [id number] THIS REPORT FOR: //name// [facility] ED Test Date: 2017-11-30 Test Time: 06:43:40 Pat Name: MADISON ESPINOZA Department: Room: [facility] Gender: M Back Line Cook: PARRIS : 1970 Requested By: Lilly Mark Order Number: [id number] MD: Karthik Campo Measurements Intervals [place] Rate: 87 P: 57 DE: 148 QRS: -22 QRSD: 98 T: 36 QT: 349 QTc: 420 Interpretive Statements Sinus rhythm Borderline left axis deviation ST elev, probable normal early repol pattern Compared to ECG 06/03/2017 08:53:07 Myocardial infarct finding no longer present Early repolarization no longer present ST (T wave) deviation still present Electronically Signed On 11-30-2017 9:40:40 CDT by Karthik Campo [email or web address] <ELECTRONICALLY SIGNED> By: Karthik Campo MD, FACC 11/30/17 0940 0643 0643 Karthik Campo MD, FAC /EPI
[2017-11-30 10:51] LABS: CHOLESTEROL 188 mg/dL (<200); HDL CHOLESTEROL 47 mg/dL (>40); LDL CHOLESTEROL 127 mg/dL (<100); TRIGLYCERIDE 73 mg/dL (<150); VLDL 15 mg/dL (<40)
[2017-11-30 10:52] LABS: SERUM ASSESSMENT Clear
[2017-12-01] VITALS: BP 119/67
[2017-12-01 03:58] VITALS: BP 132/80
[2017-12-01 07:45] VITALS: BP 120/72
[2017-12-01] MEDS ORDERED: CRESTOR20 MG PO (09:28)
[2017-12-01 10:46] VITALS: BP 120/72
--- NOTE | 2017-12-01 12:57 | CON ---
[address] [address] CONSULTATION Name: MADISON ESPINOZA JR Room: [address] IN .R.#: [id number] Admission: 11/30/17 Attend Phys: Madison Garner MD Discharge: 12/01/17 Date of : 66 Report #: [id number] THIS REPORT FOR: //name// CC: Julito Garner DATE OF SERVICE: 11/30/2017 CHIEF COMPLAINT: Chest pain. HISTORY OF PRESENT ILLNESS: The patient is a longtime patient of mine who is a 47-year-old man with tobaccoism, multivessel coronary artery disease, woke up this morning with left arm pressure and pain, but it was only mild to moderate in severity. He started to get ready for work, but then, he had a severe episode of central chest discomfort radiating to his neck and arm and then that is when he came into the Emergency Room. His presenting ECG showed a sinus rhythm with peaked T-waves, but normal ST segments. He was given 2 nitroglycerin and the symptoms have quieted down, but he is still having a low level, perhaps 1-2/10 left pressure. He thinks he might have injured his left arm because he has had some fingertip numbness, but has no facial numbness, weakness, slurred speech or visual changes. He has been compliant with his aspirin and Plavix therapy. He denies shortness of breath, weight gain, edema, orthopnea or PND. He denies palpitation. He presents with a sinus rhythm. PAST MEDICAL HISTORY: Significant for: 1. Multivessel coronary artery disease remotely. He presented with PCI to his right coronary artery in the acute setting. May of this year, he underwent elective PCI to his LAD and a large obtuse marginal. He is a heavy smoker and when we had discontinued Plavix after his initial PCI, he had thrombosed his stent in 2012. His ejection fraction has always been normal. 2. He has hyperlipidemia, which is only modestly treated. He cannot afford injectable with his insurance plan and refuses high dose statin, so we did add Zetia to Zocor 20 mg when he was on higher doses up. 3. Low testosterone, when he was on higher dose statins, he reported that his testosterone level dropped and refuses high dose statins. He has hypertriglyceridemia. He is not a diabetic. SOCIAL HISTORY: He is a tobacco user and continues to smoke, although he has been closer and responded to discussions in the past about quitting. He is . 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 He does drink fairly regularly alcohol[place] [address] CONSULTATION Name: MADISON ESPIONZA JR Room: [address] IN ..#: [id number] Admission: 11/30/17 Attend Phys: Madison Garner MD Discharge: 12/01/17 Date of : 66 Report #: [id number] FAMILY HISTORY: Heart disease in father. His father had PCI x 2. MEDICATIONS: Include simvastatin 20 mg daily, lisinopril 40 mg daily, ezetimibe 10 mg. He actually takes his simvastatin only 4-5 days per week. He is on fenofibrate 160 mg daily, Plavix 75 mg daily, baby aspirin, nitroglycerin, melatonin, hydrocodone p.r.n. for chronic back pain. REVIEW OF SYSTEMS: CENTRAL NERVOUS SYSTEM: No seizure or paralysis, visual changes. He does have some left arm numbness, but no weakness. Tingling in his fingertips. GENERAL: No weight loss or fevers. RESPIRATORY: No cough or sputum production. CARDIOVASCULAR: Positive chest discomfort, no orthopnea, no PND, no syncope, no edema. ENDOCRINE: No diabetes or thyroid problems. GASTROINTESTINAL: No nausea or vomiting. He has had some occasional maroon-colored stools, but they are intermittent. GENITOURINARY: No dysuria or hematuria. HEMATOLOGIC: No anemia or bleeding disorders. ALLERGIES: No seasonal, medical, aspirin or contrast allergies. PSYCHIATRIC: No depression or anxiety. SKIN: No rashes. EYES: He does use glasses. EARS, NOSE, THROAT AND MOUTH: No loss of hearing, dentures, or visual changes. PHYSICAL EXAMINATION: VITAL SIGNS: Blood pressure is 125/70, pulse is 66, temperature is 36.7. GENERAL: He is pleasant, adult male who is alert, oriented, no apparent distress. HEENT: Eyes: EOMs intact. No facial asymmetry. NECK: Supple. No jugular venous distention. Upstrokes are normal. I cannot hear bruits. CARDIOVASCULAR: Regular, I cannot hear a murmur or S3. LUNGS: Clear to auscultation. ABDOMEN: Soft, nontender, nondistended. EXTREMITIES: No peripheral edema. Pulses, radial and femoral pulses are normal. Distal extremities and dorsalis pedis pulses are normal. LABORATORY DATA: Electrocardiogram shows sinus rhythm with borderline LVH and normal ST segments. There are slightly peaked T-waves. Hemoglobin is 7.6, white blood count is 7.6, platelet count is 221,000. INR is 1.2. Sodium is 141, potassium is 4.3, chloride is 103, CO2 is 32, BUN 10, creatinine 1.0. Glucose 106, AST 19, ALT 35. Troponin I is 0.06. BNP is 20. IMPRESSION AND PLAN: [address] [address] CONSULTATION Name: MADISON ESPINOZA JR Room: [address] IN ..#: [id number] Admission: 11/30/17 Attend Phys: Madison Garner MD Discharge: 12/01/17 Date of : 66 Report #: [id number] 1. Unstable angina. He is having rest chest discomfort of severe nature in intensity and relief of his symptoms with nitroglycerin. He poses continued cardiovascular risk with his partially treated hyperlipidemia and tobacco use. 2. Coronary artery disease. He has status post multivessel percutaneous coronary intervention to a circumflex marginal, left anterior descending most recently and remotely to his right coronary artery. He has been compliant with his aspirin and Plavix, but unfortunately has still been smoking. Given the patient's unstable presentation, I recommend evaluation with cardiac catheterization rather than a stress test. 3. Hypertension. This is well controlled. 4. Tobacco use. We will again recommend cessation. 5. Hyperlipidemia as noted above. He has somewhat difficult to treat case. Perhaps, he can apply for assistance for injectable drugs as his insurance coverage is marginal for this therapy. <ELECTRONICALLY SIGNED> By: Karthik Campo MD, [facility] 12/01/17 1257 1045 1837Karthik Campo MD, FACC /nt
--- NOTE | 2017-12-04 10:46 | CARD ---
[address] [address] CARDIAC CATH REPORT Name: MADISON ESPINOZA JR Room: [address] IN [facility]#: [id number] Admission: 11/30/17 Attend Phys: Madison Garner MD Discharge: 12/01/17 Date of : 66 Report #: [id number] THIS REPORT FOR: //name// APPROVED REPORT Study performed: 11/30/2017 14:50:25 Patient Details Patient Status: In-Patient Room #: The patient is a 47 year-old male Event Personnel Karthik Campo Telecom Billing Analyst, Domenic Tejeda Scabbler, Jhoana Webb RN Office Receptionist, Lizette Coleman RN Monitor, Todd Mcclelland ARRT (R) SCRUB Procedures Performed Art Access - R femoral artery* Left Heart Cath w/or w/o Coronaries [id number] [facility] Place w/wo Plasty Addl BR PDA C9601 DESADDL Atherectomy w/wo Plasty Sgl DIAG [id number] ATHSINGLE Hemostasis w/ Angioseal , Right transradial approach Indication Unstable angina Risk Factors Hypercholesterolemia, Coronary Artery DiseaseHypertension Admission/Lab Medications/Medications given during procedure Aspirin, Platelet Aff. Inhib., Angiomax bolus and infusion Procedure Narrative The patient was brought electively to the Cardiac Catheterization Laboratory and was prepped and draped in a sterile manner. The right femoral was infiltrated with 1% Lidocaine subcutaneous anesthesia. A 6fr Ultimum Sheath sheath was inserted into the right femoral artery. Coronary angiography was performed using coronary diagnostic catheters. The right coronary system was accessed and visualized with a Diagnostic catheter. The left coronary system was accessed and visualized with a Diagnostic catheter. The left ventricle was accessed and visualized with a Diagnostic catheter. Left ventricular/Aortic Valve gradient assessed via catheter pullback. Pre-demployment femoral angiogram was performed . Closure device was deployed with a Fr Angioseal STS 6Fr. [place] [address] CARDIAC CATH REPORT Name: MADISON ESPINOZA JR Room: [address] IN [facility].#: [id number] Admission: 11/30/17 Attend Phys: Madison Garner MD Discharge: 12/01/17 Date of : 66 Report #: [id number] procedure well and there were no complications associated with the procedure. Intraoperative Conscious Sedation Fentanyl 75 mcg Dose: 2954 mGy Contrast Type and Amount: Omnipaque 150 ml Diagnostic Cath Left Main 0% narrowing LAD 30% proximal 40% mid LAD narrowing Diagonal 1 90% ostial 80% mid first diagonal stenosis Circumflex 40% proximal narrowing Right Coronary 30% proximal 50% mid and 60% distal narrowing with 90% stenosis of the proximal portion of the posterior descending branch Left Ventriculography The left ventricle is normal in size with normal contractility. The left ventricular ejection fraction is estimated to be 60%. Left ventricular wall motion abnormalities are not present. There is no mitral insufficiency. Hemodynamics The aortic pressure is 110/67 mmHg with a mean of 86 mmHg. The left ventricular pressure is 117/1 mmHg with a mean of mmHg. The left ventricular end diastolic pressure is 6 mmHg. There was no gradient across the aortic valve upon pullback. PCI Technique Lesion Anticoagulation was achieved with Angiomax. Patient was preloaded with Angiomax IV 13 ml. Percutaneous coronary intervention was performed on the first diagnonal branch segment. A 6FR XB 3.5 100CM Guide Catheter was used to engage the ostium. A IG: ProwaterFlex 180CM Interventional Guidewire was used to cross the lesion. BALLOON DILATION A Balloon catheter Trek RX 2.25 X 12, 2.0x10 angiosculpt was inserted and inflated up to 10.00atm for 11seconds. Additional Inflation: 12.00atm for 11seconds. COMMENTS Atherotomy/atherectomy was performed on the prominent first [place] [address] CARDIAC CATH REPORT Name: MADISON ESPINOZA JR Room: [address]#: [id number] Admission: 11/30/17 Attend Phys: Madison Garner MD Discharge: 12/01/17 Date of : 66 Report #: [id number] PCI Technique Lesion 2 Percutaneous Coronary Intervention was performed on the right posterior descending artery. Patient was preloaded with Angiomax IV 13 ml. A 6F H-STK Guide Catheter was used to engage the ostium. Stent Deployment A stent Xience Alpine RX 2.25X08 was inserted and inflated up to dante for seconds. Post Stent Deployment Balloon Dilation A Balloon catheter Mini Trek RX 2.0 X 8 was inserted and inflated up to dante for seconds. Conclusion #1 significant coronary artery disease characterized by the following: A 30% proximal 40% mid LAD narrowing with 90% ostial and 80% mid first diagonal stenosis B nondominant circumflex with 40% proximal narrowing C dominant right coronary artery with 30% proximal 40% mid and 60% distal narrowing with 90% stenosis of the proximal portion of the posterior descending branch #2 normal left ventricular systolic function, estimate ejection fraction being 60% #3 normal left-sided hemodynamics study #4 successful atherectomy of the first diagonal branch of the LAD with 20% ostial and 10% residual narrowing following atherotomy/atherectomy #5 successful percutaneous coronary intervention with deployment of drug-eluting stent at site of 90% posterior descending stenosis with 0% residual narrowing Recommendations Cardiac Risk Reduction Program Aggressive Medical Therapy Medications Administered Aspirin (any) [place] [address] CARDIAC CATH REPORT Name: MADISON ESPINOZA JR Room: [address]#: [id number] Admission: 11/30/17 Attend Phys: Madison Garner MD Discharge: 12/01/17 Date of : 66 Report #: [id number] Prasugrel Diagnostic Cath Approved by: Karthik Campo MD Date/Time: 12/04/2017 10:44:51 <ELECTRONICALLY SIGNED> By: Domenic Tejeda MD, [facility] 12/04/17 1046 1046 1046Joreno Tejeda MD, FAC /INF
== END 2017-12-01 11:30 | disposition home or self-care (01) | DRG 282 ==
LOC: M.ERS 06:38 → M.2W 08:07 → M.TBA-ER 08:07 → M.2W 08:40
PROVIDERS: Emergency Medicine; Internal Medicine Cardiovascular Disease; ADMIT Internal Medicine
DX: I21.4 Non-ST elevation (NSTEMI) myocardial infarction (principal); I25.110 Atherosclerotic heart disease of native coronary artery with unstable angina pectoris; I10 Essential (primary) hypertension; E78.5 Hyperlipidemia, unspecified; F17.210 Nicotine dependence, cigarettes, uncomplicated; I25.2 Old myocardial infarction; Z79.02 Long term (current) use of antithrombotics/antiplatelets; Z95.5 Presence of coronary angioplasty implant and graft; Z79.82 Long term (current) use of aspirin; Z79.899 Other long term (current) drug therapy; Z82.49 Family history of ischemic heart disease and other diseases of the circulatory system

== ENCOUNTER 2018-01-17 05:13 | Emergency (ER) | payer BC ==
[~2018-01-17] VITALS: Ht 195.6 cm; Wt 90.7 kg
[~2018-01-17 05:13] MED LIST changes: +ZETIA10 MG PO; +ZOCOR20 MG PO
[2018-01-17 05:51] LABS: ABSOLUTE BASOPHILS 0.1 thou/uL (0.0-0.2); ABSOLUTE EOSINOPHILS 0.2 thou/uL (0.0-0.7); ABSOLUTE LYMPHOCYTES 1.4 thou/uL (0.8-5.3); ABSOLUTE MONOCYTES 0.8 thou/uL (0.0-1.2); BASOPHILS 0.6 %; EOSINOPHILS 2.6 %; HEMOGLOBIN 17.3 gm/dL (14.0-18.0); LYMPHOCYTES 15.3 %; MCH 33.1 pg (26.0-34.0); MCV 97.3 fL (80.0-100.0); MONOCYTES 7.9 %; MPV 6.9 fl. (7.2-11.1); NUCLEATED RBCS 0 /100WBC; PLATELET COUNT* 204 thou/uL (150-400); POLYS 73.6 %; RBC 5.24 mil/uL (4.50-6.00); RDW-CV 13.2 % (10.5-14.5); WBC 9.5 thou/uL (4.0-11.0)
[2018-01-17 06:00] LABS: CALCIUM 8.9 mg/dL (8.5-10.1); POTASSIUM 3.9 mmol/L (3.5-5.1)
[2018-01-17 06:04] LABS: TOTAL BILIRUBIN 0.6 mg/dL (<0.1-1.0)
[2018-01-17] MEDS ORDERED: CLEOCIN HCL150 MG PO (06:48)
[2018-01-17] MEDS ORDERED: NORCO 7.5-3251 EACH PO (06:48)
[2018-01-17 08:18] VITALS: BP 109/67
== END 2018-01-17 08:18 | disposition home or self-care (01) ==
LOC: M.ERS 05:13
PROVIDERS: Emergency Medicine
DX: L03.116 Cellulitis of left lower limb (principal); I25.10 Atherosclerotic heart disease of native coronary artery without angina pectoris; I10 Essential (primary) hypertension; E78.5 Hyperlipidemia, unspecified; F17.210 Nicotine dependence, cigarettes, uncomplicated; Z95.5 Presence of coronary angioplasty implant and graft

== ENCOUNTER → 2018-08-05 | Outpatient (CLI) | payer BC ==
[~2018-08-05] MED LIST changes: +CLEOCIN HCL150 MG PO; +NORCO 7.5-3251 EACH PO
--- NOTE | 2018-08-05 18:36 | CARDNUC ---
[place] [address] CARDIAC NUCLEAR IMAGING REPORT Name: MDAISON ESPINOZA JR Room: [facility]#: [id number] Admission: 08/05/18 Attend Phys: Karthik Campo, Discharge: Date of : 66 Date of Service: 08/05/18 1836 Report #: [id number] THIS REPORT FOR: //name// APPROVED REPORT Study performed: 08/05/2018 08:45:00 Indication: CAD s/p PCI Patient Location: Out-Patient Stress Tech: Radha Coker Stress Nurse: Marlen Sprague RN Ht: 6 ft 5 in Wt: 207 lbs BSA: 2.27 m2 HR: 71 bpm BP: 124/73 mmHg BMI: 24.54 Rhythm: NSR Medical History Medications: Aspirin, Plavix, Zetia, Prinivil, rosuvastatin Allergies: No known drug allergies Cardiac Risk Factors: FHX of CAD, Tobacco History (Current/Recent), Age, PVD, Hyperlipidemia, HTN Previous Cardiac Procedures: PCI Resting Data Rest SPECT myocardial perfusion imaging was performed in supine position 30 minutes following the intravenous injection of 10.9 mCi of Tc-99m Sestamibi. Time of rest injection: 904 The images were gated to evaluate regional wall motion and calculate left ventricular ejection fraction. Administration Route: IV Administration Site: Right Arm Exercise Stress At peak stress, the patient was injected intravenously with 31.0mCi of Tc-99m Sestamibi. Time of stress injection: 1055 Administration Route: IV Administration Site: Right Arm Heart Rate at time of stress injection: 153 bpm. Patient continued to exercise for 1 minute(s). Gated Stress SPECT was performed 30 minutes [place] [address] CARDIAC NUCLEAR IMAGING REPORT Name: MADISON ESPINOZA JR Room: [facility]#: [id number] Admission: 08/05/18 Attend Phys: Karthik Campo, Discharge: Date of : 66 Date of Service: 08/05/18 1836 Report #: [id number] The images were gated to evaluate regional wall motion and calculate left ventricular ejection fraction. Prone imaging was performed. Stress Test Details Stress Test: Exercise stress testing was performed using a Bijan protocol. HR Max Heart Rate (APMHR): 171 bpm Resting HR: 71 bpm Target HR (85% APMHR): 145 bpm Max HR Achieved: 148 bpm % of APMHR: 86 Recovery HR: 98 bpm HR response to stress: Normal HR response to stress BP Resting BP: 124/73 mmHg Max BP: 199/71 mmHg Recovery BP: 121/77 mmHg BP response to stress: Normal blood pressure response to stress. ECG Resting ECG: Sinus Rhythm Stress ECG: Sinus Tachycardia ST Change: None Arrhythmia: None Recovery ECG: Sinus Rhythm Recovery ST Change: None Recovery Arrhythmia: None Clinical Reason for Termination: Fatigue Exercise duration: 12 min 57 sec Exercise capacity: 13.48 METs The patient tolerated status Bijan protocol exercise without significant cardiac symptoms. Stress ECG Conclusion The baseline 12-lead EKG shows sinus rhythm without significant ST or T wave abnormalities. EKGs obtained during and post exercise showed sinus rhythm and sinus tachycardia with no significant ST or T wave changes when compared to baseline. There were no stress-induced arrhythmias. Study Quality Study: [place] [address] CARDIAC NUCLEAR IMAGING REPORT Name: MADISON ESPINOZA JR Room: [facility]#: [id number] Admission: 08/05/18 Attend Phys: Karthik Campo, Discharge: Date of : 66 Date of Service: 08/05/18 1836 Report #: [id number] Artifact: Mild Diaphragmatic artifact Study Data At rest, the left ventricular ejection fraction was 65%.. Post stress, the left ventricular ejection was 55%.. TID = 0.99. Perfusion Myocardial perfusion images obtained in the supine position at rest and post stress show a moderate region of photopenia in the inferior wall that resolves completely on post stress prone imaging suggesting diaphragmatic attenuation artifact. No other significant defects were identified. Wall Motion Normal left ventricular wall motion. Nuclear Conclusion ECG Findings: negative for ischemia Clinical Findings: negative for ischemia Nuclear Findings: negative for ischemia Exercise Capacity: normal Left Ventricular Function: normal Risk Study: low Myocardial perfusion images show no defect to suggest infarct or ischemia. Left ventricular systolic function appears normal on gated studies. This is a low risk study. <Conclusion> The baseline 12-lead EKG shows sinus rhythm without significant ST or T wave abnormalities. EKGs obtained during and post exercise showed sinus rhythm and sinus tachycardia with no significant ST or T wave changes when compared to baseline. There were no stress-induced arrhythmias. <ELECTRONICALLY SIGNED> By: Hair Rock MD, FACC 08/05/18 1836 [id number] [phone] Hair Rock MD, FACC /INF
== END ==
LOC: M.NUC 02-14 09:36 → M.CRD 08-03 09:00 → M.NUC 08-03 10:00
DX: I25.10 Atherosclerotic heart disease of native coronary artery without angina pectoris (principal); I10 Essential (primary) hypertension; E78.00 Pure hypercholesterolemia, unspecified; I65.23 Occlusion and stenosis of bilateral carotid arteries; E78.5 Hyperlipidemia, unspecified; F17.210 Nicotine dependence, cigarettes, uncomplicated; Z95.5 Presence of coronary angioplasty implant and graft; Z79.899 Other long term (current) drug therapy; Z82.49 Family history of ischemic heart disease and other diseases of the circulatory system

== ENCOUNTER 2018-11-21 10:39 | Observation (INO) | payer BC ==
[2018-11-21] VITALS (14 sets, daily range): BP systolic 136–176; BP diastolic 78–102
[~2018-11-21] VITALS: Ht 195.6 cm; Wt 90.7 kg
[2018-11-21 10:58] LABS: HEMATOCRIT 52.6 % (42.0-52.0); HEMOGLOBIN 18.3 gm/dL (14.0-18.0); MCH 34.4 pg (26.0-34.0); MCHC 34.7 g/dL (28.0-37.0); MCV 99.1 fL (80.0-100.0); MPV 6.5 fl. (7.2-11.1); NUCLEATED RBCS 0 /100WBC; PLATELET COUNT* 195 thou/uL (150-400); RBC 5.31 mil/uL (4.50-6.00); RDW-CV 14.2 % (10.5-14.5); WBC 9.7 thou/uL (4.0-11.0)
[2018-11-21 11:08] LABS: ANION GAP 9 mmol/L (7-16); BUN 7 mg/dL (7-18); CALCIUM 8.6 mg/dL (8.5-10.1); CHLORIDE 100 mmol/L (98-107); CO2 28 mmol/L (21-32); CREATININE 0.9 mg/dL (0.6-1.3); GLUCOSE 117 mg/dL (70-99); POTASSIUM 3.8 mmol/L (3.5-5.1); SODIUM 137 mmol/L (136-145)
[2018-11-21 11:10] LABS: APTT 26.6 Seconds (25.0-31.3); INR 1.1; PROTIME 10.8 Seconds (9.20-11.50)
[2018-11-21 11:24] LABS: ALBUMIN 4.1 g/dL (3.4-5.0); ALKALINE PHOSPHATASE 60 U/L (46-116); CK-MB MASS 1.3 ng/mL (<0.5-3.6); LIPASE 59 U/L (73-393); MAGNESIUM 1.7 mg/dL (1.8-2.4); NT-PRO BRAIN NAT PEPTIDE 20 pg/mL (<300); SGOT 20 U/L (15-37); SGPT 30 U/L (30-65); TOTAL BILIRUBIN 0.9 mg/dL (<0.1-1.0); TROPONIN-I LEVEL <0.06 ng/mL (<0.06)
[2018-11-21 12:01] LABS: ABSOLUTE MONOCYTES 0.3 thou/uL (0.0-1.2); ABSOLUTE NEUTROPHILS 8.4 thou/uL (1.6-8.1); PLATELET ESTIMATE ADEQUATE
[2018-11-21 13:37] LABS: CHOLESTEROL 211 mg/dL (<200); HDL CHOLESTEROL 54 mg/dL (>40); LDL CHOLESTEROL 143 mg/dL (<100); TC:HDL 3.9 Ratio (Not establshd); TRIGLYCERIDE 73 mg/dL (<150); VLDL 15 mg/dL (<40)
[2018-11-21 13:38] LABS: SERUM ASSESSMENT Clear
--- NOTE | 2018-11-21 19:46 | NUR ---
PT ARRIVEED AT APPROX 1515 FROM ER, FULL ASSESMENT DONE CHARTED. PT A/O X4, DENIES CP AT THIS TIME. VSS. SR ON THE MONITOR. PT TAKEN TO SOLUTION MANAGER FOR CARDIAC CATH. RETURNED TO ROOM AT APPROX 1740, PT IN PAIN, RIGHT GROIN BLEEDING. DR CAPELLAN NOTIFIED, PRESSURE HELD AND SOLUTION MANAGER RN INJECTED LIDOCAIN. PT DID NOT HAVE ANY MORE BLEEDING AFTER THIS. VS CONTINUE TO BE STABLE. PT INSTRUCTED BEDREST UNTIL MIDNIGHT TONIGHT. REPORT GIVEN TO CHASITY CONNER
[2018-11-22] VITALS (8 sets, daily range): BP systolic 144–166; BP diastolic 91–103
[2018-11-22 04:49] LABS: HEMATOCRIT 50.3 % (42.0-52.0); HEMOGLOBIN 17.1 gm/dL (14.0-18.0); MCH 34.2 pg (26.0-34.0); MCV 100.5 fL (80.0-100.0); RDW-CV 14.2 % (10.5-14.5)
--- NOTE | 2018-11-22 04:54 | NUR ---
PT ON BR UNTIL MN THEN UP WITH STAND BY ASSIST. R SHARMILA BENAVIDES D/I. NS AT 100MLS/HR. TELEMETRY SHOWS SR. DENIES CHEST PAIN.
[2018-11-22 05:16] LABS: CALCIUM 8.6 mg/dL (8.5-10.1); CREATININE 1.1 mg/dL (0.6-1.3); POTASSIUM 3.9 mmol/L (3.5-5.1); TOTAL BILIRUBIN 0.4 mg/dL (<0.1-1.0); TOTAL PROTEIN 5.5 g/dL (6.4-8.2); TROPONIN-I LEVEL 0.42 ng/mL (<0.06)
--- NOTE | 2018-11-22 10:29 | EKG ---
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 <ELECTRONICALLY SIGNED> By: Hair Rock MD, FACC 11/22/18 1028 1042 1042 Hair Rock MD, FAC /EPI
--- NOTE | 2018-11-22 10:38 | EKG ---
[place] [address] ELECTROCARDIOGRAM REPORT Name: MADISON ESPINOZA JR Room: [address] M.R.#: [id number] Admission: 11/21/18 Attend Phys: Naseem Herman Discharge: Date of : 66 Report #: [id number] THIS REPORT FOR: //name// [facility] Test Date: 2018-11-22 Test Time: 06:37:51 Pat Name: MADISON ESPINOZA Department: Room: [address] Gender: M Medical Lab Director: J[place] : 1970 Requested By: Domenic Tejeda Order Number: [id number] Octavia MD: Hair Rock Measurements Intervals [place] Rate: 73 P: -6 [place]: 152 QRS: -21 QRSD: 98 T: 27 QT: 370 QTc: 408 Interpretive Statements Sinus rhythm Borderline left axis deviation ST elev, probable normal early repol pattern Baseline wander in lead(s) V2 Compared to ECG 11/30/2017 06:43:40 No significant changes Electronically Signed On 11-22-2018 10:38:37 CDT by Hair Rock [email or web address] <ELECTRONICALLY SIGNED> By: Hair Rock MD, FACC 11/22/18 1038 0637 0637 Hair Rock MD, FAC /EPI
--- NOTE | 2018-11-22 11:56 | NUR ---
CALLED AND LEFT MESSAGE WITH [employer] LETTING THEM KNOW THE PT NEEDS AN RX CALLED INTO PHARMACY FOR NITRO. ROLLY, CARDIAC TATTOOER STATED THIS WAS SUFFICIENT AND THAT THE [employer] OPERATOR WOULD CALL IN TO THE PHARMACY UNLESS THEY CALL AND STATE OTHERWISE.
--- NOTE | 2018-11-22 15:28 | CARD ---
[address] [address] CARDIAC CATH REPORT Name: ALEXISMADISON GREARD Room: [address] Jeana Maynard#: [id number] Admission: 11/21/18 Attend Phys: Naseem Herman Discharge: 11/22/18 Date of : 66 Report #: [id number] THIS REPORT FOR: //name// APPROVED REPORT Study performed: 11/21/2018 14:45:13 Patient Details Patient Status: Observation Room #: Event Personnel Dr. Tejeda Procedures Performed Left heart catheterization left dicker artery selective coronary artery and percutaneous coronary intervention with atherectomy angioplasty and stenting of the first diagonal branch of the LAD Indication Unstable angina Risk Factors Hypercholesterolemia, Hypertension, Tobacco History () Previous Procedures/Diagnoses Previous PCI, Previous CT Admission/Lab Medications/Medications given during procedure Angiomax bolus and infusion Procedure Narrative The patient was brought electively to the Cardiac Catheterization Laboratory and was prepped and draped in a sterile manner. The right femoral was infiltrated with 2% Lidocaine subcutaneous anesthesia. A 6 Vietnamese sheath was inserted into the right femoral artery. Coronary angiography was performed using coronary diagnostic catheters. The right coronary system was accessed and visualized with a Diagnostic catheter. The left coronary system was accessed and visualized with a Diagnostic catheter. The left ventricle was accessed and visualized with a Diagnostic catheter. Left ventricular/Aortic Valve gradient assessed via catheter pullback. Left ventriculogram was performed in SOTO projection. Pre-demployment femoral angiogram was performed . Closure device was deployed with a 6 Fr Angioseal. The patient tolerated the procedure well and there were no complications [facility] [address] [place] [address] CARDIAC CATH REPORT Name: MADISON ESPINOZA JR Room: [address] Jeana Maynard#: [id number] Admission: 11/21/18 Attend Phys: Naseem Herman Discharge: 11/22/18 Date of : 66 Report #: [id number] associated with the procedure. There was no hematoma. Diagnostic Cath Left Main 0% narrowing LAD 30% proximal 40% mid LAD narrowing; there was 75% ostial and tandem 90% stenoses of the prominent first diagonal branch in the proximal and midportions, Circumflex 40% mid vessel narrowing Right Coronary Large dominant vessel with 40% mid vessel narrowing widely patent proximal posterior descending branch stent Left Ventriculography The left ventricle is normal in size with normal contractility. The left ventricular ejection fraction is estimated to be 60%. Left ventricular wall motion abnormalities are not present. There is no mitral insufficiency. Hemodynamics The aortic pressure is 120/70 mmHg with a mean of 84 mmHg. The left ventricular end diastolic pressure is 8 mmHg. There was no gradient across the aortic valve upon pullback. PCI Technique Lesion Anticoagulation was achieved with Angiomax. Percutaneous coronary intervention was performed on the first diagonal branch of the LAD. The lesion stenosis prior to intervention was 90% with RICK 3 flow. A 6 Vietnamese XB 3.5 Guide Catheter was used to engage the left ostium. A 014 [employer] flex Interventional Guidewire was used to cross the lesion. BALLOON DILATION A Balloon catheter 2.0 x 12 NC trek was inserted and inflated up to 24atm for 12seconds. STENT DEPLOYMENT A drug-eluting stent 2.0x15 pernell was inserted and inflated up to dante for seconds. Final angiography reveals 10 % stenosis with RICK 3 flow. COMMENTS First diagonal lesion was treated with an initial angioplasty. By virtue non-distensibility of the calcified lesion, I then the dilated the diagonal with a 2.0 x 10 mm scoring balloon inflated to 14 dante for atherotomy of the segment. I then Deployed a 2.0 x 15 [place] [address] CARDIAC CATH REPORT Name: MADISON ESPINOZA JR [address] [id number] Admission: 11/21/18 Attend Phys: Naseem Herman Discharge: 11/22/18 Date of : 66 Report #: [id number] pernell Drug-eluting stent. PCI Technique Lesion 2 Percutaneous Coronary Intervention was performed on the ostium of the first diagonal. The lesion stenosis prior to intervention was 80% with RICK 3 flow. Balloon Dilation A Balloon catheter 2.25 x 8 trek was inserted and inflated up to 14atm for 15seconds. Final angiography reveals 20 % stenosis with RICK 3 flow. Conclusion #1 significant multivessel coronary disease characterized by the following: A 30% proximal and 40% mid LAD narrowing with 75% ostial first diagonal stenosis and tandem 90% proximal and mid vessel stenoses which were heavily calcified B 40% narrowing in the midportion of the nondominant circumflex C dominant right coronary artery with 40% mid vessel narrowing and a widely patent proximal posterior descending branch stent #2 normal left ventricular systolic function, estimate ejection fraction being 60% #3 normal left-sided hemodynamics study #4 successful percutaneous coronary intervention with angioplasty at the ostium of the diagonal and angioplasty atherectomy and stenting of the proximal and mid portions of the diagonal with 20 and 10% residual narrowing following the procedure and RICK-3 flow to the distal vessel Recommendations Smoking Cessation Daily ASA with Plavix for at least one year Cardiac Risk Reduction Program Medications Administered Aspirin (any) [place] [address] CARDIAC CATH REPORT Name: MADISON ESPINOZA JR Room: [address]#: [id number] Admission: 11/21/18 Attend Phys: Naseem Herman Discharge: 11/22/18 Date of : 66 Report #: [id number] Clopidogrel Diagnostic Cath Approved by: Domenic Tejeda MD Date/Time: 11/22/2018 15:24:08 <ELECTRONICALLY SIGNED> By: Domenic Tejeda MD, [facility] 11/22/18 1527 1527 1527Domenic Tejeda MD, [facility] /INF
== END 2018-11-22 13:45 | disposition home or self-care (01) ==
LOC: M.ERS 10:39 → M.2W 11:29 → M.TBA-ER 11:29 → M.2W 13:50
PROVIDERS: Family Medicine; Internal Medicine; Registered Nurse; ADMIT Internal Medicine
DX: I25.110 Atherosclerotic heart disease of native coronary artery with unstable angina pectoris (principal); I10 Essential (primary) hypertension; E78.5 Hyperlipidemia, unspecified; F17.210 Nicotine dependence, cigarettes, uncomplicated; D75.1 Secondary polycythemia; R42 Dizziness and giddiness; Z95.5 Presence of coronary angioplasty implant and graft; Z79.82 Long term (current) use of aspirin; Z79.899 Other long term (current) drug therapy

== ENCOUNTER 2019-01-04 06:59 | Emergency (ER) | payer BC ==
[~2019-01-04] VITALS: Ht 195.6 cm; Wt 93.0 kg
[2019-01-04 07:22] LABS: ABSOLUTE BASOPHILS 0.1 thou/uL (0.0-0.2); ABSOLUTE EOSINOPHILS 0.1 thou/uL (0.0-0.7); ABSOLUTE LYMPHOCYTES 1.1 thou/uL (0.8-5.3); ABSOLUTE MONOCYTES 0.7 thou/uL (0.0-1.2); ABSOLUTE NEUTROPHILS 3.9 thou/uL (1.6-8.1); BASOPHILS 1.1 %; EOSINOPHILS 2.4 %; HEMATOCRIT 53.5 % (42.0-52.0); HEMOGLOBIN 18.8 gm/dL (14.0-18.0); LYMPHOCYTES 19.4 %; MCH 35.2 pg (26.0-34.0); MCHC 35.2 g/dL (28.0-37.0); MONOCYTES 11.1 %; MPV 6.7 fl. (7.2-11.1); NUCLEATED RBCS 0 /100WBC; PLATELET COUNT* 191 thou/uL (150-400); RBC 5.35 mil/uL (4.50-6.00); RDW-CV 14.2 % (10.5-14.5); WBC 5.9 thou/uL (4.0-11.0)
[2019-01-04 07:26] LABS: ANION GAP 5 mmol/L (7-16); BUN 19 mg/dL (7-18); CHLORIDE 102 mmol/L (98-107); CO2 30 mmol/L (21-32); CREATININE 1.1 mg/dL (0.6-1.3); GLUCOSE 112 mg/dL (70-99); POTASSIUM 4.7 mmol/L (3.5-5.1); SODIUM 137 mmol/L (136-145)
[2019-01-04 07:28] LABS: PROTIME 10.5 Seconds (9.20-11.50)
[2019-01-04 07:44] LABS: ALKALINE PHOSPHATASE 73 U/L (46-116); LIPASE 117 U/L (73-393); NT-PRO BRAIN NAT PEPTIDE 14 pg/mL (<300); SGOT 23 U/L (15-37); SGPT 35 U/L (30-65); TOTAL BILIRUBIN 0.6 mg/dL (<0.1-1.0); TOTAL PROTEIN 7.1 g/dL (6.4-8.2); TROPONIN-I LEVEL <0.06 ng/mL (<0.06)
[2019-01-04 10:13] VITALS: BP 150/96
--- NOTE | 2019-01-04 11:20 | EKG ---
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
== END 2019-01-04 10:14 | disposition home or self-care (01) ==
LOC: M.ERS 06:59
PROVIDERS: Personal Emergency Response Attendant
DX: I16.0 Hypertensive urgency (principal); R00.2 Palpitations; I25.10 Atherosclerotic heart disease of native coronary artery without angina pectoris; I10 Essential (primary) hypertension; E78.5 Hyperlipidemia, unspecified; Z95.5 Presence of coronary angioplasty implant and graft

== ENCOUNTER → 2020-02-23 | Outpatient (CLI) | payer BC | LOC: M.ULTRA 07:25 | PROVIDERS: ATTEND Internal Medicine | DX: I65.23 Occlusion and stenosis of bilateral carotid arteries (principal) ==

== ENCOUNTER 2020-07-15 13:26 | Emergency (ER) | payer BC ==
[~2020-07-15] VITALS: Ht 195.6 cm; Wt 93.0 kg
[2020-07-15] MEDS ORDERED: CARVEDILOL12.5 MG PO (13:37)
[2020-07-15 13:54] LABS: ABSOLUTE EOSINOPHILS 0.1 thou/uL (0.0-0.7); ABSOLUTE LYMPHOCYTES 1.2 thou/uL (0.8-5.3); ABSOLUTE MONOCYTES 0.4 thou/uL (0.0-1.2); ABSOLUTE NEUTROPHILS 4.3 thou/uL (1.6-8.1); BASOPHILS 0.5 %; EOSINOPHILS 1.9 %; HEMATOCRIT 49.9 % (42.0-52.0); HEMOGLOBIN 17.1 gm/dL (14.0-18.0); LYMPHOCYTES 19.9 %; MCH 35.2 pg (26.0-34.0); MCHC 34.3 g/dL (28.0-37.0); MCV 102.7 fL (80.0-100.0); MONOCYTES 6.9 %; MPV 6.5 fl. (7.2-11.1); NUCLEATED RBCS 0 /100WBC; PLATELET COUNT* 186 thou/uL (150-400); POLYS 70.8 %; RBC 4.86 mil/uL (4.50-6.00); RDW-CV 14.4 % (10.5-14.5)
[2020-07-15 14:04] LABS: CALCIUM 8.6 mg/dL (8.5-10.1); CREATININE 0.9 mg/dL (0.6-1.3); POTASSIUM 3.8 mmol/L (3.5-5.1)
[2020-07-15 14:07] LABS: APTT 29.2 Seconds (25.0-31.3); PROTIME 10.3 Seconds (9.20-11.50)
[2020-07-15 14:18] LABS: ALBUMIN 3.7 g/dL (3.4-5.0); CK-MB MASS 1.4 ng/mL (<0.5-3.6); MAGNESIUM 1.8 mg/dL (1.8-2.4); TOTAL BILIRUBIN 0.7 mg/dL (<0.1-1.0); TOTAL PROTEIN 6.8 g/dL (6.4-8.2)
[2020-07-15 16:47] VITALS: BP 149/90
--- NOTE | 2020-07-15 17:13 | EKG ---
[place] [address] ELECTROCARDIOGRAM REPORT Name: MADISON ESPINOZA JR Room: [facility]#: [id number] Admission: 07/15/20 Attend Phys: Discharge: 07/15/20 Date of : 66 Date of Service: 07/15/20 1331 Report #: [id number] THIS REPORT FOR: //name// [facility] ED Test Date: 2020-07-15 Test Time: 13:31:46 Pat Name: MADISON ESPINOZA Department: Room: Gender: Pie Icer Machine[place] [facility] [place] 1970 Requested By: Giuseppe Santillan Order Number: [id number] MD: Hair Rock Measurements Intervals [place] Rate: 94 P: 67 [place]: 168 QRS: -70 QRSD: 104 T: 55 QT: 339 QTc: 424 Interpretive Statements Sinus rhythm LAD, consider left anterior fascicular block RSR' in V1 or V2 Left ventricular hypertrophy with repolarization abnormality Baseline wander in lead(s) V4 Compared to ECG 01/04/2019 07:02:58 RSR' in V1 or V2 now present Left ventricular hypertrophy now present ST (T wave) deviation still present Electronically Signed On 07-15-2020 17:13:09 CDT by Hair Rock [email or web address] <ELECTRONICALLY SIGNED> By: Hair Rock MD, [facility] 07/15/20 1713 1331 133 Hair Rock MD, [facility] /EPI
== END 2020-07-15 16:47 | disposition home or self-care (01) ==
LOC: M.ERS 13:26
PROVIDERS: Family Medicine
DX: R07.89 Other chest pain (principal); F10.129 Alcohol abuse with intoxication, unspecified; Y90.6 Blood alcohol level of 120-199 mg/100 ml; I10 Essential (primary) hypertension; E78.5 Hyperlipidemia, unspecified; I25.10 Atherosclerotic heart disease of native coronary artery without angina pectoris; Z95.5 Presence of coronary angioplasty implant and graft; Z90.89 Acquired absence of other organs

== ENCOUNTER → 2020-08-05 | Outpatient (CLI) | payer BC ==
[~2020-08-05] MED LIST changes: +CARVEDILOL12.5 MG PO
== END ==
LOC: M.LAB 15:11
PROVIDERS: ATTEND Surgery
DX: Z01.812 Encounter for preprocedural laboratory examination (principal); Z20.822 Contact with and (suspected) exposure to COVID-19; K64.8 Other hemorrhoids

== ENCOUNTER 2020-09-30 10:33 | Emergency (ER) | payer BC ==
[~2020-09-30] VITALS: Ht 195.6 cm; Wt 90.7 kg
[2020-09-30] MEDS ORDERED: TESTOSTERONE (10:46)
[2020-09-30 11:09] LABS: ABSOLUTE BASOPHILS 0.1 thou/uL (0.0-0.2); ABSOLUTE EOSINOPHILS 0.1 thou/uL (0.0-0.7); ABSOLUTE LYMPHOCYTES 0.9 thou/uL (0.8-5.3); ABSOLUTE MONOCYTES 0.4 thou/uL (0.0-1.2); ABSOLUTE NEUTROPHILS 7.2 thou/uL (1.6-8.1); BASOPHILS 0.6 %; EOSINOPHILS 1.3 %; HEMATOCRIT 51.6 % (42.0-52.0); HEMOGLOBIN 18.4 gm/dL (14.0-18.0); LYMPHOCYTES 10.1 %; MCH 36.9 pg (26.0-34.0); MCHC 35.7 g/dL (28.0-37.0); MCV 103.5 fL (80.0-100.0); MONOCYTES 4.1 %; MPV 6.6 fl. (7.2-11.1); NUCLEATED RBCS 0 /100WBC; PLATELET COUNT* 201 thou/uL (150-400); POLYS 83.9 %; RBC 4.99 mil/uL (4.50-6.00); RDW-CV 15.1 % (10.5-14.5); WBC 8.6 thou/uL (4.0-11.0)
[2020-09-30 11:19] LABS: CALCIUM 8.4 mg/dL (8.5-10.1); POTASSIUM 4.1 mmol/L (3.5-5.1)
[2020-09-30 11:29] LABS: ALBUMIN 4.1 g/dL (3.4-5.0); TOTAL BILIRUBIN 0.6 mg/dL (<0.1-1.0); TOTAL PROTEIN 7.1 g/dL (6.4-8.2)
[2020-09-30 12:09] LABS: URINE BILIRUBIN NEGATIVE (Negative); URINE BLOOD NEGATIVE (Negative); URINE CLARITY CLEAR; URINE COLOR YELLOW; URINE GLUCOSE-RANDOM NEGATIVE (Negative); URINE KETONES NEGATIVE (Negative); URINE LEUKOCYTES-REFLEX NEGATIVE (Negative); URINE NITRITE-REFLEX NEGATIVE (Negative); URINE PROTEIN NEGATIVE (Negative); URINE SPECIFIC GRAVITY <= 1.005 (1.005-1.030); URINE UROBILINOGEN 0.2 E.U./dl (0.2-1.0)
[2020-09-30 14:28] VITALS: BP 174/93
--- NOTE | 2020-09-30 14:47 | EKG ---
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 : 1970 Requested By: Linsey Teixeira Order Number: [id number] MD: Domenic Tejeda Measurements Intervals [place] Rate: 86 P: 47 [place]: 163 QRS: -52 QRSD: 101 T: 52 QT: 373 QTc: 446 Interpretive Statements Sinus rhythm LAD, consider left anterior fascicular block ST elev, probable normal early repol pattern Compared to ECG 07/15/2020 13:31:[address]-T alterations persist Left ventricular hypertrophy no longer present Electronically Signed On 09-30-2020 14:47:20 CDT by Domenic Tejeda [email or web address] <ELECTRONICALLY SIGNED> By: Domenic Tejeda MD, [facility] 09/30/20 1447 1118 1118 Domenic Tejeda MD, [facility] /EPI
== END 2020-09-30 14:30 | disposition home or self-care (01) ==
LOC: M.ERS 10:33
PROVIDERS: Nurse Practitioner Family
DX: B34.9 Viral infection, unspecified (principal); Z20.822 Contact with and (suspected) exposure to COVID-19; I10 Essential (primary) hypertension; E86.0 Dehydration; R53.1 Weakness; F17.210 Nicotine dependence, cigarettes, uncomplicated; I25.10 Atherosclerotic heart disease of native coronary artery without angina pectoris; E78.5 Hyperlipidemia, unspecified; Z95.5 Presence of coronary angioplasty implant and graft; Z90.89 Acquired absence of other organs